=== PATIENT | female | born 1985 | race Caucasian/White ===

== ENCOUNTER → 2020-11-08 08:21 | Outpatient (BNVA) | payer OTHER, SELFPAY | PROVIDERS: PCP Family Medicine; Visit Provider Physician Assistant | DX: Z76.89 Persons encountering health services in other specified circumstances (principal) ==

== ENCOUNTER → 2020-11-09 10:47 | Outpatient (BNVA) | payer OTHER, SELFPAY | PROVIDERS: PCP Family Medicine; Visit Provider Physician Assistant | DX: E66.01 Morbid (severe) obesity due to excess calories (principal); Z68.43 Body mass index [BMI] 50.0-59.9, adult | CPT/HCPCS: 99212 ==

== ENCOUNTER → 2020-11-24 08:25 | Outpatient (BNVA) | payer OTHER, SELFPAY | PROVIDERS: PCP Family Medicine; Visit Provider Dietitian, Registered | DX: Z76.89 Persons encountering health services in other specified circumstances (principal) ==

== ENCOUNTER 2020-12-07 13:42 | Outpatient (REF) | payer OTHER, SELFPAY ==
--- NOTE | 2020-12-07 13:51 | ECG_ITS ---
Test Reason : MORBID OBESITY Blood Pressure : / mmHG Vent. Rate : 079 BPM Atrial Rate : 079 BPM P-R Int : 144 ms QRS Dur : 094 ms QT Int : 398 ms P-R-T Axes : 054 051 021 degrees QTc Int : 456 ms Normal sinus rhythm with sinus arrhythmia Normal ECG No previous ECGs available Referred By: Tiffanie Reddy Electronically Signed By:Rasta Blanco
--- NOTE | 2020-12-07 14:40 | XR_ITS ---
EXAMINATION: XR CHEST CLINICAL INFORMATION: Morbid obesity due to excess calories. COMPARISON: None TECHNIQUE: 2 views of the chest were obtained. FINDINGS: The lungs are well expanded. There is no focal consolidation, edema, or effusion. No pneumothorax. The cardiomediastinal silhouette is within normal limits. No acute osseous abnormality. XR/XR chest 2V IMPRESSION: Clear lungs.
[2020-12-07 15:33] LABS: MANUAL DIFF FLAG NO
[2020-12-07 15:34] LABS: Basophils Absolute Auto 0.1 X10*3/uL (0.0-0.2); Basophils Percent Auto 0.7 % (0-2); Eosinophils Absolute Auto 0.2 X10*3/uL (0.0-0.4); Eosinophils Percent Auto 2.5 % (0-4); Hematocrit 41.9 % (37-47); Hemoglobin 13.3 g/dl (12.0-16.0); Imm Gran Abs Auto 0.02 X10*3/uL (0.00-0.03); Imm Gran Pct Auto 0.3 % (0.0-0.4); Lymphocytes Absolute Auto 1.5 X10*3/uL (1.2-4.9); Lymphocytes Percent Auto 20.3 % (20-40); Mean Corpuscular HGB Conc 31.7 g/dl (31.0-35.0); Mean Corpuscular Hemoglobin 28.6 pg (27.0-33.0); Mean Corpuscular Volume 90.1 fL (80-98); Monocytes Absolute Auto 0.5 X10*3/uL (0.1-1.2); Monocytes Percent Auto 6.8 % (2-11); Neutrophils Absolute Auto 5.2 X10*3/uL (2.0-8.3); Neutrophils Percent Auto 69.4 % (45-73); Platelet Count 335 X10*3/uL (160-400); Red Blood Count 4.65 X10*6/uL (4.20-5.50); Red Cell Distribution Width 13.4 % (11.0-16.0); White Blood Count 7.5 X10*3/uL (4.8-10.8)
[2020-12-07 15:46] LABS: Estimated Average Glucose 94 mg/dL; Hemoglobin A1c % 4.9 %
[2020-12-07 16:04] LABS: Alanine Aminotransferase 17 U/L (0-31); Albumin Level 4.1 g/dL (3.5-5.0); Alkaline Phosphatase 93 U/L (39-117); Anion Gap 12 (12-20); Aspartate Amino Transferase 14 U/L (5-31); Bilirubin Total 0.5 mg/dL (0.0-1.0); Blood Urea Nitrogen 12 mg/dL (9-16); Carbon Dioxide 26 mmol/L (22-29); Chloride 109 mmol/L (96-108); Cholesterol 129 mg/dL; Estimated Glomerular Filt Rate > 60; Glucose Fasting 77 mg/dL (60-99); HDL Cholesterol 39 mg/dL; Iron 29 mcg/dL (30-160); LDL Cholesterol Calculated 72 mg/dl; Percent Iron Saturation 9 % (15-50); Potassium 4.4 mmol/l (3.3-5.1); Sodium 143 mmol/L (135-145); Total Iron Binding Capacity 313 mcg/dL (228-428); Total Protein 7.1 g/dL (6.5-8.0); Triglycerides 91 mg/dL; Unsaturated Iron Binding 284 ug/dL
[2020-12-07 16:27] LABS: Ferritin 20 ng/mL (10-122); TSH reflex Free T4 5.62 mIU/mL (0.32-4.0); Vitamin D 25-OH Total 20.5 ng/mL (>30)
[2020-12-07 16:34] LABS: Vitamin B12 340 pg/mL (200-900)
[2020-12-07 17:04] LABS: Free T4 (Free Thyroxine) 0.82 ng/dL (0.71-1.85)
[2020-12-08 10:52] LABS: Insulin Level Total 10.3 uIU/mL
[2020-12-08 15:42] LABS: Calcium (PTHI) 9.2 mg/dL (8.6-10.2); PTHI 39 pg/mL (14-64)
[2020-12-10 01:53] LABS: Zinc 77 mcg/dL (60-130)
[2020-12-11 13:23] LABS: Vitamin B1 7 nmol/L (8-30)
[2020-12-13 19:02] LABS: Vitamin A 44 mcg/dL (38-98)
== END 2020-12-07 13:43 | disposition home or self-care (01) ==
LOC: HO.LAB 13:42
PROVIDERS: PCP Internal Medicine; Visit Provider Physician Assistant
DX: Z00.00 Encounter for general adult medical examination without abnormal findings (principal); E66.01 Morbid (severe) obesity due to excess calories; R06.02 Shortness of breath; E11.9 Type 2 diabetes mellitus without complications; E03.9 Hypothyroidism, unspecified; Z68.43 Body mass index [BMI] 50.0-59.9, adult
CPT/HCPCS: 36415; 71046; 80053; 80061; 82306; 82607; 82728; 82746; 83036; 83525; 83540; 83970; 84425; 84439; 84443; 84590; 84630; 85025; 86140; 93005

== ENCOUNTER → 2020-12-21 08:25 | Outpatient (BNVA) | payer OTHER, SELFPAY | PROVIDERS: PCP Internal Medicine; Visit Provider Dietitian, Registered ==

== ENCOUNTER 2020-12-22 15:30 | Outpatient (REF) | payer OTHER, SELFPAY ==
[2020-12-23 13:51] LABS: H Pylori Breath Test NOT DETECTED (NOT DETECTED)
== END 2020-12-22 15:31 | disposition home or self-care (01) ==
LOC: HO.LNP 15:30
PROVIDERS: PCP Nurse Practitioner Family; Visit Provider Physician Assistant
DX: Z11.0 Encounter for screening for intestinal infectious diseases (principal)
CPT/HCPCS: 83013; 99211

== ENCOUNTER → 2021-01-18 07:57 | Outpatient (BNVA) | payer OTHER, SELFPAY | PROVIDERS: PCP Internal Medicine; Visit Provider Surgery ==

== ENCOUNTER 2021-02-02 13:30 | Outpatient (REF) | payer OTHER, SELFPAY ==
--- NOTE | ~2021-02-02 | XR_ITS ---
EXAMINATION: XR, HAND, BILATERAL CLINICAL INFORMATION: Pain. COMPARISON: None TECHNIQUE: Three views of each hand. FINDINGS: Left: There is periarticular osteopenia. There is extensive cystic change at the wrist involving the LONG TERM joints, carpal bones and radiocarpal and distal radial ulnar joints. There is slight collapse of the proximal carpal row. The IP joints and MCP joints are normal-appearing. No fracture, dislocation or bone lesion is seen. Soft tissues are normal. Right: There is periarticular osteopenia. There is collapse of the proximal carpal row. There is question of ankylosis of the carpal bones as discrete joint spaces in the wrist is no longer seen. There is a cystic change in the carpal bones, distal radius and distal ulna. There is joint space narrowing at the radiocarpal joint and distal radioulnar joints. There is joint space narrowing at the LONG TERM joints. The MCP and IP joints are normal. Soft tissues are normal. XR/XR hand RT min 3V IMPRESSION: Severe arthritis at the wrists, right greater than left. Inflammatory arthritis should be considered.
--- NOTE | ~2021-02-02 | XR_ITS ---
EXAMINATION: XR, HAND, BILATERAL CLINICAL INFORMATION: Pain. COMPARISON: None TECHNIQUE: Three views of each hand. FINDINGS: Left: There is periarticular osteopenia. There is extensive cystic change at the wrist involving the ALF joints, carpal bones and radiocarpal and distal radial ulnar joints. There is slight collapse of the proximal carpal row. The IP joints and MCP joints are normal-appearing. No fracture, dislocation or bone lesion is seen. Soft tissues are normal. Right: There is periarticular osteopenia. There is collapse of the proximal carpal row. There is question of ankylosis of the carpal bones as discrete joint spaces in the wrist is no longer seen. There is a cystic change in the carpal bones, distal radius and distal ulna. There is joint space narrowing at the radiocarpal joint and distal radioulnar joints. There is joint space narrowing at the ALF joints. The MCP and IP joints are normal. Soft tissues are normal. 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 Inflammatory arthritis should be considered.
--- NOTE | ~2021-02-02 | XR_ITS ---
EXAMINATION: BILATERAL KNEE X-RAY CLINICAL INFORMATION: Pain COMPARISON: None TECHNIQUE: 4 views each knee FINDINGS: Bone alignment is normal. No fracture or dislocation is seen. There may be slight lateral tilt of the patella on the sunrise view. Joint spaces are otherwise normal. There are bilateral joint effusions, left greater than right. XR/XR knee RT 3V IMPRESSION: Bilateral large joint effusions, left greater than right. Slight lateral tilt of the patella on the sunrise views.
--- NOTE | ~2021-02-02 | XR_ITS ---
EXAMINATION: BILATERAL KNEE X-RAY CLINICAL INFORMATION: Pain COMPARISON: None TECHNIQUE: 4 views each knee FINDINGS: Bone alignment is normal. No fracture or dislocation is seen. There may be slight lateral tilt of the patella on the sunrise view. Joint spaces are otherwise normal. There are bilateral joint effusions, left greater than right. XR/XR knee LT 3V IMPRESSION: Bilateral large joint effusions, left greater than right. Slight lateral tilt of the patella on the sunrise views.
[2021-02-02 14:56] LABS: MANUAL DIFF FLAG NO
[2021-02-02 14:59] LABS: Basophils Percent Auto 0.3 % (0-2); Eosinophils Absolute Auto 0.2 X10*3/uL (0.0-0.4); Eosinophils Percent Auto 1.9 % (0-4); Hematocrit 39.6 % (37-47); Hemoglobin 12.9 g/dl (12.0-16.0); Imm Gran Abs Auto 0.03 X10*3/uL (0.00-0.03); Imm Gran Pct Auto 0.3 % (0.0-0.4); Lymphocytes Absolute Auto 1.8 X10*3/uL (1.2-4.9); Lymphocytes Percent Auto 19.8 % (20-40); Mean Corpuscular HGB Conc 32.6 g/dl (31.0-35.0); Mean Corpuscular Hemoglobin 28.1 pg (27.0-33.0); Mean Corpuscular Volume 86.3 fL (80-98); Mean Platelet Volume 9.5 fL (9.4-12.3); Monocytes Absolute Auto 0.6 X10*3/uL (0.1-1.2); Neutrophils Absolute Auto 6.3 X10*3/uL (2.0-8.3); Neutrophils Percent Auto 70.7 % (45-73); Platelet Count 396 X10*3/uL (160-400); Red Blood Count 4.59 X10*6/uL (4.20-5.50); Red Cell Distribution Width 13.4 % (11.0-16.0); White Blood Count 8.9 X10*3/uL (4.8-10.8)
[2021-02-02 15:27] LABS: Alanine Aminotransferase 26 U/L (0-31); Albumin Level 4.1 g/dL (3.5-5.0); Alkaline Phosphatase 93 U/L (39-117); Anion Gap 17 (12-20); Aspartate Amino Transferase 17 U/L (5-31); Bilirubin Total 0.3 mg/dL (0.0-1.0); Blood Urea Nitrogen 17 mg/dL (9-16); C Reactive Protein 5.77 mg/dL (< or = 0.50); Calcium 9.4 mg/dL (8.4-10.2); Carbon Dioxide 20 mmol/L (22-29); Chloride 106 mmol/L (96-108); Cholesterol 133 mg/dL; Estimated Glomerular Filt Rate > 60; Glucose Fasting 81 mg/dL (60-99); HDL Cholesterol 39 mg/dL; LDL Cholesterol Calculated 78 mg/dl; Potassium 4.4 mmol/L (3.3-5.1); Rheumatoid Factor 73.5 IU/mL (<15.0); Sodium 139 mmol/L (135-145); Total Protein 7.7 g/dL (6.5-8.0); Triglycerides 80 mg/dL
[2021-02-02 15:42] LABS: Erythrocyte Sedimentation Rate 72 MM/HR (0-20)
[2021-02-02 15:48] LABS: Thyroid Stimulating Hormone 5.42 uIU/mL (0.32-4.0)
[2021-02-03 08:31] LABS: Lyme Abs Screen <0.90 index
[2021-02-03 13:16] LABS: Antibody to SS-A Antigen <1.0 NEG AI (<1.0 NEG); Antibody to SS-B Antigen <1.0 NEG AI (<1.0 NEG)
[2021-02-04 23:57] LABS: Cyclic Citrullinated Peptide >250 UNITS
[2021-02-05 08:20] LABS: Hepatitis B Surface Antigen Negative (Negative)
[2021-02-05 08:24] LABS: HBS Num1 1.81 mIU/mL (0-7.99); HBc Num1 0.14 S/CO (0.00-0.79); Hepatitis B Core Antibody Nonreactive (Nonreactive); ~HepC Num1 0.14 S/CO (0.00-0.79); ~Hepatitis B Surface Antibody NONREACTIVE (Nonreactive); ~Hepatitis C Antibody Nonreactive (Nonreactive)
[2021-02-05 14:56] LABS: TS Negative Control Passed; TS Panel A 0; TS Panel B 0; TS Positive Control Passed; TSpotTB Negative (SeeBelow)
[2021-02-05 15:47] LABS: Anti Nuclear Antibody Pattern Nuclear, Centromere; Anti Nuclear Antibody Screen POSITIVE (NEGATIVE)
[2021-02-07 08:09] LABS: Hepatitis A Antibody IgM 0.15 Index (0-0.79); ~Hepatitis A Antibody IgM Nonreactive (Nonreactive)
== END 2021-02-02 13:31 | disposition home or self-care (01) ==
LOC: HO.LAB 13:30
PROVIDERS: PCP Internal Medicine; Visit Provider Student in an Organized Health Care Education/Training Program
DX: M25.50 Pain in unspecified joint (principal); E11.9 Type 2 diabetes mellitus without complications; E03.9 Hypothyroidism, unspecified; E66.01 Morbid (severe) obesity due to excess calories; F32.9 Major depressive disorder, single episode, unspecified; M85.88 Other specified disorders of bone density and structure, other site; Z87.891 Personal history of nicotine dependence; Z88.8 Allergy status to other drugs, medicaments and biological substances; Z79.899 Other long term (current) drug therapy
CPT/HCPCS: 36415; 73130; 73562; 80053; 80061; 84443; 85025; 85652; 86038; 86039; 86140; 86200; 86235; 86431; 86481; 86618; 86704; 86706; 86709; 86803; 87340; 99202

== ENCOUNTER → 2021-02-08 15:15 | Outpatient (BNVA) | payer OTHER, SELFPAY | PROVIDERS: Visit Provider Surgery | DX: E66.01 Morbid (severe) obesity due to excess calories (principal); Z68.43 Body mass index [BMI] 50.0-59.9, adult; E55.9 Vitamin D deficiency, unspecified | CPT/HCPCS: 99212 ==

== ENCOUNTER → 2021-02-23 09:11 | Outpatient (BNVA) | payer OTHER, SELFPAY | PROVIDERS: Visit Provider Student in an Organized Health Care Education/Training Program | DX: M06.9 Rheumatoid arthritis, unspecified (principal) ==

== ENCOUNTER 2021-04-10 15:07 | Outpatient (REF) | payer OTHER, SELFPAY ==
[2021-04-10 16:20] LABS: MANUAL DIFF FLAG NO
[2021-04-10 16:25] LABS: Basophils Percent Auto 0.6 % (0-2); Eosinophils Absolute Auto 0.2 X10*3/uL (0.0-0.4); Eosinophils Percent Auto 3.2 % (0-4); Hematocrit 40.7 % (37-47); Hemoglobin 12.7 g/dl (12.0-16.0); Imm Gran Abs Auto 0.02 X10*3/uL (0.00-0.03); Imm Gran Pct Auto 0.3 % (0.0-0.4); Lymphocytes Absolute Auto 1.6 X10*3/uL (1.2-4.9); Mean Corpuscular HGB Conc 31.2 g/dl (31.0-35.0); Mean Corpuscular Hemoglobin 27.3 pg (27.0-33.0); Mean Corpuscular Volume 87.5 fL (80-98); Mean Platelet Volume 8.9 fL (9.4-12.3); Monocytes Absolute Auto 0.5 X10*3/uL (0.1-1.2); Monocytes Percent Auto 7.2 % (2-11); Neutrophils Absolute Auto 4.4 X10*3/uL (2.0-8.3); Neutrophils Percent Auto 64.7 % (45-73); Platelet Count 373 X10*3/uL (160-400); Red Blood Count 4.65 X10*6/uL (4.20-5.50); Red Cell Distribution Width 15.5 % (11.0-16.0); White Blood Count 6.8 X10*3/uL (4.8-10.8)
[2021-04-10 16:51] LABS: Alanine Aminotransferase 18 U/L (0-31); Albumin Level 4.1 g/dL (3.5-5.0); Alkaline Phosphatase 108 U/L (39-117); Anion Gap 14 (12-20); Aspartate Amino Transferase 15 U/L (5-31); Bilirubin Total 0.4 mg/dL (0.0-1.0); Blood Urea Nitrogen 13 mg/dL (9-16); C Reactive Protein 5.28 mg/dL (< or = 0.50); Calcium 9.5 mg/dL (8.4-10.2); Carbon Dioxide 25 mmol/L (22-29); Chloride 103 mmol/L (96-108); Estimated Glomerular Filt Rate > 60; Glucose Random 102 mg/dL (60-115); Potassium 4.1 mmol/L (3.3-5.1); Sodium 138 mmol/L (135-145); Total Protein 7.4 g/dL (6.5-8.0)
[2021-04-10 17:16] LABS: Vitamin D 25-OH Total 32.5 ng/mL (>30)
[2021-04-10 17:22] LABS: Erythrocyte Sedimentation Rate 69 MM/HR (0-20)
[2021-04-10 17:58] LABS: Glucose Urine UA NEG (NEG); Leukocyte Esterase Urine 1+ (NEG); Nitrite Urine NEG (NEG); Specific Gravity - Urine 1.015 (1.005-1.025); Urine Blood NEG (NEG); Urine Ketones NEG (NEG); Urine Protein NEG (NEG-TRACE)
[2021-04-10 18:02] LABS: Appearance Urine CLEAR; Color Urine YELLOW
[2021-04-10 18:11] LABS: Bacteria Urine 1+ /LPF; RBC Urine 0 /HPF (0); Squamous Epithelial Cell Urine 2+ /LPF; WBC Urine 0-2 /HPF (0-4)
[2021-04-11 09:37] LABS: Thyroglobulin Antibodies 5 IU/mL (< or = 1); Thyroid Peroxidase Antibodies 247 IU/mL (<9)
[2021-04-11 11:37] LABS: Anti DNA DS Antibody 1 IU/mL; SM/Ribonucleoprotein Ab <1.0 NEG AI (<1.0 NEG); Scleroderma 70 Antibody <1.0 NEG AI (<1.0 NEG); Smith Protein <1.0 NEG AI (<1.0 NEG)
[2021-04-11 14:52] LABS: Complement C3 77 mg/dL (83-193)
== END 2021-04-10 15:08 | disposition home or self-care (01) ==
LOC: HO.LAB 15:07
PROVIDERS: Surgery; Visit Provider Student in an Organized Health Care Education/Training Program
DX: Z01.818 Encounter for other preprocedural examination (principal); R76.8 Other specified abnormal immunological findings in serum; M06.9 Rheumatoid arthritis, unspecified; E55.9 Vitamin D deficiency, unspecified
CPT/HCPCS: 36415; 80053; 81001; 82306; 85025; 85652; 86140; 86160; 86225; 86235; 86376; 86800

== ENCOUNTER → 2021-04-12 16:20 | Outpatient (BNVA) | payer OTHER, SELFPAY | PROVIDERS: PCP Internal Medicine; Visit Provider Student in an Organized Health Care Education/Training Program | DX: M25.50 Pain in unspecified joint (principal); R76.8 Other specified abnormal immunological findings in serum; E66.01 Morbid (severe) obesity due to excess calories; F41.8 Other specified anxiety disorders; Z68.43 Body mass index [BMI] 50.0-59.9, adult; Z88.8 Allergy status to other drugs, medicaments and biological substances; Z79.899 Other long term (current) drug therapy | CPT/HCPCS: 99212 ==

== ENCOUNTER 2021-05-30 12:32 | Outpatient (REF) | payer OTHER, SELFPAY ==
[2021-05-30 13:09] LABS: MANUAL DIFF FLAG NO
[2021-05-30 13:12] LABS: Basophils Percent Auto 0.4 % (0-2); Eosinophils Absolute Auto 0.2 X10*3/uL (0.0-0.4); Hematocrit 39.7 % (37-47); Hemoglobin 12.7 g/dl (12.0-16.0); Imm Gran Abs Auto 0.02 X10*3/uL (0.00-0.03); Imm Gran Pct Auto 0.2 % (0.0-0.4); Lymphocytes Absolute Auto 1.7 X10*3/uL (1.2-4.9); Lymphocytes Percent Auto 21.1 % (20-40); Mean Corpuscular Hemoglobin 27.5 pg (27.0-33.0); Mean Corpuscular Volume 86.1 fL (80-98); Mean Platelet Volume 9.1 fL (9.4-12.3); Monocytes Absolute Auto 0.7 X10*3/uL (0.1-1.2); Monocytes Percent Auto 7.9 % (2-11); Neutrophils Absolute Auto 5.6 X10*3/uL (2.0-8.3); Neutrophils Percent Auto 68.4 % (45-73); Platelet Count 390 X10*3/uL (160-400); Red Blood Count 4.61 X10*6/uL (4.20-5.50); Red Cell Distribution Width 15.6 % (11.0-16.0); White Blood Count 8.2 X10*3/uL (4.8-10.8)
[2021-05-30 13:47] LABS: Glucose Urine UA NEG (NEG); Leukocyte Esterase Urine 3+ (NEG); Nitrite Urine NEG (NEG); Specific Gravity - Urine 1.025 (1.005-1.025); Urine Blood NEG (NEG); Urine Ketones 5 MG/DL (NEG); Urine Protein NEG (NEG-TRACE)
[2021-05-30 13:51] LABS: Alanine Aminotransferase 16 U/L (0-31); Alkaline Phosphatase 88 U/L (39-117); Anion Gap 12 (12-20); Aspartate Amino Transferase 13 U/L (5-31); Bilirubin Total 0.4 mg/dL (0.0-1.0); Blood Urea Nitrogen 16 mg/dL (9-16); C Reactive Protein 3.89 mg/dL (< or = 0.50); Calcium 9.4 mg/dL (8.4-10.2); Carbon Dioxide 21 mmol/L (22-29); Chloride 108 mmol/L (96-108); Estimated Glomerular Filt Rate > 60; Glucose Random 85 mg/dL (60-115); Potassium 4.3 mmol/L (3.3-5.1); Sodium 137 mmol/L (135-145); Total Protein 7.4 g/dL (6.5-8.0)
[2021-05-30 13:56] LABS: Erythrocyte Sedimentation Rate 69 MM/HR (0-20)
[2021-05-30 14:03] LABS: Amorphous Sediment Urine 1+ /LPF; Mucus Urine 1+ /LPF; RBC Urine 0 /HPF (0); Squamous Epithelial Cell Urine 2+ /LPF
[2021-05-30 15:24] LABS: Appearance Urine HAZY; Color Urine YELLOW
== END 2021-05-30 12:33 | disposition home or self-care (01) ==
LOC: HO.LAB 12:32
PROVIDERS: PCP Internal Medicine; Visit Provider Student in an Organized Health Care Education/Training Program
DX: M06.9 Rheumatoid arthritis, unspecified (principal)
CPT/HCPCS: 36415; 80053; 81001; 85025; 85652; 86140

== ENCOUNTER → 2021-06-13 11:19 | Outpatient (BNVA) | payer OTHER, SELFPAY | PROVIDERS: PCP Internal Medicine; Visit Provider Student in an Organized Health Care Education/Training Program | DX: M06.9 Rheumatoid arthritis, unspecified (principal) ==

== ENCOUNTER → 2021-07-31 13:37 | Outpatient (BNVA) | payer OTHER, SELFPAY | PROVIDERS: PCP Internal Medicine; Referring Provider Internal Medicine; Visit Provider Surgery | DX: E66.01 Morbid (severe) obesity due to excess calories (principal); Z68.43 Body mass index [BMI] 50.0-59.9, adult | CPT/HCPCS: 99212 ==

== ENCOUNTER 2021-08-08 11:22 | Outpatient (REF) | payer OTHER, SELFPAY ==
[2021-08-08 12:34] LABS: MANUAL DIFF FLAG NO
[2021-08-08 13:33] LABS: Basophils Percent Auto 0.4 % (0-2); Eosinophils Absolute Auto 0.3 X10*3/uL (0.0-0.4); Eosinophils Percent Auto 3.8 % (0-4); Hematocrit 37.7 % (37-47); Hemoglobin 12.1 g/dl (12.0-16.0); Imm Gran Abs Auto 0.02 X10*3/uL (0.00-0.03); Imm Gran Pct Auto 0.3 % (0.0-0.4); Lymphocytes Absolute Auto 1.7 X10*3/uL (1.2-4.9); Lymphocytes Percent Auto 23.2 % (20-40); Mean Corpuscular HGB Conc 32.1 g/dl (31.0-35.0); Mean Corpuscular Hemoglobin 28.7 pg (27.0-33.0); Mean Corpuscular Volume 89.3 fL (80-98); Mean Platelet Volume 9.6 fL (9.4-12.3); Monocytes Absolute Auto 0.6 X10*3/uL (0.1-1.2); Monocytes Percent Auto 8.7 % (2-11); Neutrophils Absolute Auto 4.5 X10*3/uL (2.0-8.3); Neutrophils Percent Auto 63.6 % (45-73); Platelet Count 348 X10*3/uL (160-400); Red Blood Count 4.22 X10*6/uL (4.20-5.50); Red Cell Distribution Width 16.2 % (11.0-16.0); White Blood Count 7.1 X10*3/uL (4.8-10.8)
[2021-08-08 14:03] LABS: Appearance Urine CLEAR; Color Urine YELLOW; Glucose Urine UA NEG (NEG); Leukocyte Esterase Urine TRACE (NEG); Nitrite Urine NEG (NEG); Specific Gravity - Urine <= 1.005 (1.005-1.025); Urine Blood NEG (NEG); Urine Ketones NEG (NEG); Urine Protein NEG (NEG-TRACE)
[2021-08-08 14:07] LABS: Alanine Aminotransferase 17 U/L (0-31); Albumin Level 3.8 g/dL (3.5-5.0); Alkaline Phosphatase 96 U/L (39-117); Anion Gap 13 (12-20); Aspartate Amino Transferase 13 U/L (5-31); Bilirubin Total 0.5 mg/dL (0.0-1.0); Blood Urea Nitrogen 6 mg/dL (9-16); C Reactive Protein 2.73 mg/dL (< or = 0.50); Calcium 9.2 mg/dL (8.4-10.2); Carbon Dioxide 22 mmol/L (22-29); Chloride 109 mmol/L (96-108); Estimated Glomerular Filt Rate > 60; Glucose Random 79 mg/dL (60-115); Potassium 4.3 mmol/L (3.3-5.1); Sodium 140 mmol/L (135-145); Total Protein 6.9 g/dL (6.5-8.0)
[2021-08-08 14:13] LABS: RBC Urine 0-2 /HPF (0); Squamous Epithelial Cell Urine 1+ /LPF
[2021-08-08 14:38] LABS: Erythrocyte Sedimentation Rate 38 MM/HR (0-20)
== END 2021-08-08 11:23 | disposition home or self-care (01) ==
LOC: HO.LAB 11:22
PROVIDERS: Absent Provider Student in an Organized Health Care Education/Training Program; PCP Internal Medicine; Visit Provider Nurse Practitioner Family
DX: M05.9 Rheumatoid arthritis with rheumatoid factor, unspecified (principal)
CPT/HCPCS: 36415; 80053; 81001; 85025; 85652; 86140; 99212

== ENCOUNTER 2021-08-27 | Outpatient (REF) | payer OTHER, SELFPAY ==
--- NOTE | ~2021-08-27 | US_ITS ---
EXAMINATION: US COMPLETE ABDOMEN WITH LIVER ELASTOGRAPHY CLINICAL INFORMATION: Morbid obesity due to excess calories. COMPARISON: None. TECHNIQUE: Real-time imaging of the abdominal viscera. Noninvasive ultrasound liver fibrosis assessment is performed using Vidya ElastPQ point quantification shear wave elastography (pSWE) with a C5-2 MHz transducer. Multiple elastography samples are obtained. FINDINGS: PANCREAS: Visualized portions unremarkable. The tail is partially obscured by bowel gas shadowing. ABDOMINAL AORTA: Visualized portions unremarkable. INFERIOR VENA CAVA: Bobby portions unremarkable. LIVER: Homogeneous echotexture without focal abnormality. The right lobe measures 15.3 cm in length. The left lobe measures 9.6 cm in length. Portal flow is patent and hepatopedal. Shear wave liver elastography median stiffness is 1.65 m/s (reference: normal median stiffness is 1.3 m/s or less). IQR/median stiffness to assess sampling precision is 0.21 (reference: good quality data set is IQR/median stiffness of 0.15 or less). GALLBLADDER: Unremarkable. COMMON BILE DUCT: Normal in caliber measuring 0.3 cm in diameter. RIGHT KIDNEY: 10.3 cm. Unremarkable. LEFT KIDNEY: 11.5 cm. Unremarkable. SPLEEN: 10.7 cm. Unremarkable. FREE FLUID: None. US/US abdomen comp w elastography IMPRESSION: 1. No focal hepatic abnormality. No other significant upper abdominal abnormality. 2. Liver elastography: Compensated advanced chronic liver disease rule out. REFERENCE: Society of Radiologists in Ultrasound Liver Stiffness Thresholds (2020): LIVER STIFFNESS THRESHOLDS: *Liver Stiffness equal or less than 1.3 m/s: High probability of being normal. *Liver Stiffness less than 1.7 m/s: In the absence of other known clinical signs, rules out compensated advanced chronic liver disease. *Liver Stiffness 1.7-2.1 m/s: Suggestive of compensated advanced chronic liver disease but need further test for confirmation. *Liver Stiffness over 2.1 m/s: Rules in compensated advanced chronic liver disease. *Liver Stiffness over 2.4 m/s: Suggestive of clinically significant portal hypertension. QUALITY OF DATA SET: *IQR/Median value equal or less than 0.15 implies a quality data set. *IQR/Median value over 0.15 implies a poor quality data set. SIGNIFICANT CHANGE FROM PRIOR EXAM: Significant change if liver stiffness measurement is 10% or greater from prior exam. OTHER CONSIDERATIONS: The stage of liver fibrosis may be overestimated in the setting of acute hepatitis, liver inflammation, elevated liver function tests, hepatic vascular congestion, obstructive cholestasis, non-fasting state, and infiltrative diseases such as amyloidosis and lymphoma. In some patients with NAFLD, the liver stiffness thresholds for compensated advanced chronic liver disease may be lower. In causes other than viral hepatitis and NAFLD, liver stiffness thresholds are not well established.
--- NOTE | ~2021-08-27 | FL_ITS ---
EXAMINATION: XR GI SERIES CLINICAL INFORMATION: Morbid/severe obesity due to excess calories. COMPARISON: None TECHNIQUE: Routine upper GI air-contrast study was performed. FINDINGS: Following oral administration of thick barium and effervescent granules, there is normal propagation of bolus from the oral cavity through the pharynx, esophagus into stomach without any evidence of obstruction, narrowing or stricture. The course, caliber and peristalsis of the stomach, duodenal bulb and duodenal sweep are normal. The mucosal pattern of the stomach and the duodenum is normal. FLUOROSCOPY TIME: 1.4 minutes DOSE AREA PRODUCT: 29.070 uGy-m2 (microgray-meter squared) FL/FL upper GI series IMPRESSION: Unremarkable upper GI air-contrast study.
== END 2021-08-27 00:01 | disposition home or self-care (01) ==
LOC: HO.US
PROVIDERS: Visit Provider Surgery
DX: Z01.818 Encounter for other preprocedural examination (principal); E66.01 Morbid (severe) obesity due to excess calories; K21.9 Gastro-esophageal reflux disease without esophagitis
CPT/HCPCS: 74240; 76705; 76981

== ENCOUNTER → 2021-09-05 11:02 | Outpatient (BNVA) | payer OTHER, SELFPAY | PROVIDERS: PCP Internal Medicine; Referring Provider Internal Medicine; Visit Provider Surgery | DX: E66.01 Morbid (severe) obesity due to excess calories (principal); Z68.43 Body mass index [BMI] 50.0-59.9, adult | CPT/HCPCS: 99212 ==

== ENCOUNTER 2021-09-25 14:23 | Outpatient (REF) | payer OTHER, SELFPAY ==
[2021-09-25 14:39] LABS: MANUAL DIFF FLAG NO
[2021-09-25 14:47] LABS: Basophils Percent Auto 0.3 % (0-2); Eosinophils Absolute Auto 0.2 X10*3/uL (0.0-0.4); Eosinophils Percent Auto 2.7 % (0-4); Hematocrit 39.6 % (37.0-47.0); Hemoglobin 12.6 g/dl (12.0-16.0); Imm Gran Abs Auto 0.01 X10*3/uL (0.00-0.03); Imm Gran Pct Auto 0.2 % (0.0-0.4); Lymphocytes Absolute Auto 1.6 X10*3/uL (1.2-4.9); Lymphocytes Percent Auto 24.8 % (20-40); Mean Corpuscular HGB Conc 31.8 g/dl (31.0-35.0); Mean Corpuscular Hemoglobin 28.5 pg (27.0-33.0); Mean Corpuscular Volume 89.6 fL (80.0-98.0); Mean Platelet Volume 8.9 fL (9.4-12.3); Monocytes Absolute Auto 0.5 X10*3/uL (0.1-1.2); Monocytes Percent Auto 7.5 % (2-11); Neutrophils Absolute Auto 4.2 x10*3/uL (2.0-8.3); Neutrophils Percent Auto 64.5 % (45-73); Platelet Count 340 X10*3/uL (160-400); Red Blood Count 4.42 X10*6/uL (4.20-5.50); Red Cell Distribution Width 15.5 % (11.0-16.0); White Blood Count 6.6 X10*3/uL (4.8-10.8)
[2021-09-25 15:10] LABS: Alanine Aminotransferase 30 U/L (0-31); Albumin Level 4.1 g/dL (3.5-5.0); Alkaline Phosphatase 94 U/L (39-117); Anion Gap 12 (12-20); Aspartate Amino Transferase 24 U/L (5-31); Bilirubin Total 0.3 mg/dL (0.0-1.0); Blood Urea Nitrogen 15 mg/dL (9-16); C Reactive Protein 2.95 mg/dL (< or = 0.50); Calcium 9.5 mg/dL (8.4-10.2); Carbon Dioxide 23 mmol/L (22-29); Chloride 107 mmol/L (96-108); Estimated Glomerular Filt Rate > 60; Glucose Random 83 mg/dL (60-115); Potassium 4.4 mmol/L (3.3-5.1); Sodium 138 mmol/L (135-145); Total Protein 7.6 g/dL (6.5-8.0)
[2021-09-25 15:30] LABS: Free T4 (Free Thyroxine) 0.94 ng/dL (0.71-1.85); Thyroid Stimulating Hormone 3.77 uIU/mL (0.32-4.0)
[2021-09-25 15:53] LABS: Erythrocyte Sedimentation Rate 44 MM/HR (0-20)
[2021-09-26 17:31] LABS: Thyroglobulin 21.4 ng/mL; Thyroglobulin Antibodies 5 IU/mL (< or = 1); Thyroid Peroxidase Antibodies 263 IU/mL (<9)
[2021-10-04 07:27] LABS: Thyroglobulin Antibody 4 IU/mL (<=1); Thyroglobulin LC/MS/MS 31.8 ng/mL (Athyrotic: <0)
== END 2021-09-25 14:24 | disposition home or self-care (01) ==
LOC: HO.LAB 14:23
PROVIDERS: Nurse Practitioner Family; PCP Internal Medicine; Visit Provider Surgery
DX: E03.9 Hypothyroidism, unspecified (principal); M06.9 Rheumatoid arthritis, unspecified
CPT/HCPCS: 36415; 80053; 84432; 84439; 84443; 84481; 85025; 85652; 86140; 86376; 86800

== ENCOUNTER → 2021-09-26 07:59 | Outpatient (BNVA) | payer OTHER, SELFPAY | PROVIDERS: PCP Internal Medicine; Visit Provider Surgery ==

== ENCOUNTER → 2021-09-28 13:37 | Outpatient (BNVA) | payer OTHER, SELFPAY | PROVIDERS: PCP Internal Medicine; Referring Provider Internal Medicine; Visit Provider Physician Assistant ==

== ENCOUNTER 2021-10-11 08:34 | Inpatient (IN) | payer OTHER, SELFPAY ==
[2021-10-01 11:21] VITALS: BMI 51.5
[2021-10-02 12:30] LABS: MANUAL DIFF FLAG NO
[2021-10-02 12:51] LABS: Basophils Percent Auto 0.6 % (0-2); Eosinophils Absolute Auto 0.2 X10*3/uL (0.0-0.4); Eosinophils Percent Auto 2.1 % (0-4); Hematocrit 41.9 % (37.0-47.0); Hemoglobin 13.2 g/dl (12.0-16.0); Imm Gran Abs Auto 0.02 X10*3/uL (0.00-0.03); Imm Gran Pct Auto 0.3 % (0.0-0.4); Lymphocytes Absolute Auto 1.5 X10*3/uL (1.2-4.9); Lymphocytes Percent Auto 20.9 % (20-40); Mean Corpuscular HGB Conc 31.5 g/dl (31.0-35.0); Mean Corpuscular Hemoglobin 28.4 pg (27.0-33.0); Mean Corpuscular Volume 90.1 fL (80.0-98.0); Mean Platelet Volume 9.1 fL (9.4-12.3); Monocytes Absolute Auto 0.6 X10*3/uL (0.1-1.2); Monocytes Percent Auto 8.4 % (2-11); Neutrophils Absolute Auto 4.8 x10*3/uL (2.0-8.3); Neutrophils Percent Auto 67.7 % (45-73); Platelet Count 367 X10*3/uL (160-400); Red Blood Count 4.65 X10*6/uL (4.20-5.50); Red Cell Distribution Width 15.8 % (11.0-16.0)
[2021-10-02 12:59] LABS: INTERNATIONAL NORM RATIO 1.2 (0.9-1.1); Prothrombin Time 13.6 SEC (9.9-13.0)
[2021-10-02 13:02] LABS: Partial Thromboplastin Time 37.3 SEC (24.1-38.0)
[2021-10-02 13:10] LABS: Alanine Aminotransferase 19 U/L (0-31); Albumin Level 4.2 g/dL (3.5-5.0); Alkaline Phosphatase 94 U/L (39-117); Anion Gap 12 (12-20); Aspartate Amino Transferase 15 U/L (5-31); Bilirubin Total 0.4 mg/dL (0.0-1.0); Blood Urea Nitrogen 13 mg/dL (9-16); Calcium 9.7 mg/dL (8.4-10.2); Carbon Dioxide 25 mmol/L (22-29); Chloride 107 mmol/L (96-108); Cholesterol 129 mg/dL; Estimated Glomerular Filt Rate > 60; Glucose Random 83 mg/dL (60-115); HDL Cholesterol 45 mg/dL; LDL Cholesterol Calculated 67 mg/dl; Potassium 4.6 mmol/L (3.3-5.1); Sodium 139 mmol/L (135-145); Total Protein 7.7 g/dL (6.5-8.0); Triglycerides 87 mg/dL
[2021-10-02 13:34] LABS: Insulin 9 uU/mL (2-29); TSH reflex Free T4 3.15 uIU/mL (0.32-4.0)
[2021-10-02 13:39] LABS: Estimated Average Glucose 80 mg/dL; Hemoglobin A1c % 4.4 %
--- NOTE | 2021-10-06 10:24 | MHC.SHP ---
Pre-Procedural Eval Section A Date of Service: 10/06/21 The patient is an INPATIENT: Yes The History & Physical has been completed within 30 days and I have reviewed it.: Yes Section B Chief Complaint: Morbid Severe Obesity Relevant Family History (Specify if Yes): No Relevant Social History: None Present Medications: None Medical History: No relevant PMH History of Previous Operations: No relevant previous surgery Allergies: Allergies Allergy/AdvReac Type Severity Reaction Status Date / Time prednisone Allergy Severe Hives Verified 10/01/21 10:41 Review of Systems Sugical H&P ROS: Negative: Constitution, Cardiovascular, Respiratory, Neurological, Psychiatric, Hem-Onc, Allergic/Immunologic, Gastrointestinal, Genitourinary, Musculoskeletal, Integumentary, Endocrine and Eyes/Ears/Nose/Throat Exam Surgical H&P Exam: Normal: HEENT, Normal: Heart, Normal: Lungs, Normal: Extremities, Normal: Abdomen, Normal: Skin and Normal: Neurological Plan Diagnosis/Plan: Unchanged I have reviewed the history and physical and performed a pertinent physical examination on my patient. No changes have occurred unless specified.
--- NOTE | 2021-10-10 09:13 | P.CONAN_ITS ---
Documented by User: Armida Swartz NP 10/10/21 09:17 HPI - Anesthesia Eval Consult details Narrative: 35yo F for Gastrectomy Sleeve, EGD, Possible Diaphragmatic Hernia, Possible Ventral Hernia, Possible open RA with methotrexate weekly PMFSH Active Problems Active Problems: All Active Problems (Updated 10/01/21 @ 10:43 by Taty May RN) Physical exam (Acute) Rheumatoid arthritis (Acute) Joint pain (Acute) Vitamin D deficiency (Acute) DIVYA positive (Acute) Pre-op evaluation (Acute) Cough (Acute) Hypothyroidism (Acute) Morbid obesity (Acute) BMI 50.0-59.9, adult (Acute) Morbid obesity (Acute) Past Medical History Medical History Anxiety BMI 50.0-59.9, adult Depression Hypothyroidism Morbid obesity Rheumatoid arthritis Family History Family History Father No problems noted. Mother No problems noted. Sister No problems noted. Surgical History Surgical History History of root canal procedure S/P tonsillectomy Social History Social History Housing: Apartment Are you a primary care process manager to a significant other at home: No Do you presently have visiting nurse or other home services: No Alcohol intake: never Patient Tobacco Use Status: Former Tobacco user Quit Date: 2 yrs ago- Now rare 1 cig infrequently Tobacco use type: Cigarette Cigarette Packs Per Day: 0 Cigarettes Per Day: 0 Years Smoked: 10 Smoked in Last 30 Days: No e-Cigarette/Vaping Use: Never Used Patient Interested in Nicotine Replacement: No Second Hand Smoke Exposure: No Use of substances other than those prescribed or required for medical reasons: No Substance Use Type: Marijuana Substance Use Type Other:: Denies Have you been hit, kicked, punched, or otherwise hurt by someone within the past year? If so, by whom?: No Are you DNR?: No Advance Directives: No Advance Directives Information Provided: Yes (Mailed w/ Pre-op Instructions) Advance Directives on File: No Recently lost weight without trying: No How much weight loss: 24-33 pounds Eating poorly because of decreased appetite: No Nutrition screen score: 3 Nutrition Risks: No Nutritional Risk Patient : No FDLMP: 09/21/21 : No Poor oral hygiene: No (1 capped tooth) service: No Current occupational status: unemployed Meds Allergies Allergy/AdvReac Type Severity Reaction Status Date / Time prednisone Allergy Severe Hives Verified 10/01/21 10:41 Home Medications Medication Instructions Recorded Confirmed Last Taken Type cholecalciferol (vitamin D3) 25 25 mcg PO DAILY 07/31/21 10/01/21 09/26/21 History mcg (1,000 unit) capsule Exam Exam Date and Time: October 10, 2021 0913 Height,Weight and Vital Signs: Height 5 ft 4 in Weight 136.078 kg Pertinent Lab Results Pertinent Lab Results: Laboratory Tests 10/02/21 10/02/21 10/02/21 12:30 12:30 12:30 WBC 7.0 RBC 4.65 Hgb 13.2 Hct 41.9 MCV 90.1 MCH 28.4 MCHC 31.5 RDW 15.8 Plt Count 367 MPV 9.1 L Immature Gran % (Auto) 0.3 Neut % (Auto) 67.7 Lymph % (Auto) 20.9 Dewitt % (Auto) 8.4 Eos % (Auto) 2.1 Baso % (Auto) 0.6 Lymph # (Auto) 1.5 Dewitt # (Auto) 0.6 Eos # (Auto) 0.2 Baso # (Auto) 0.0 Abs Immat Gran (auto) 0.02 Absolute Neuts (auto) 4.8 Absolute Nucleated RBC 0.000 Nucleated RBC % (auto) 0.0 PT 13.6 H INR 1.2 H APTT 37.3 Sodium 139 Potassium 4.6 Chloride 107 Carbon Dioxide 25 Anion Gap 12 BUN 13 Creatinine 0.76 Estim Creat Clear Calc 145.0 Estimated GFR > 60 Random Glucose 83 Estimat Average Glucose Hemoglobin A1c % Insulin Level 9 Calcium 9.7 Total Bilirubin 0.4 AST 15 ALT 19 Alkaline Phosphatase 94 C-Reactive Protein 2.50 H Total Protein 7.7 Albumin 4.2 Triglycerides 87 Cholesterol 129 LDL Cholesterol, Calc 67 HDL Cholesterol 45 TSH 3.15 Blood Type Antibody Screen 10/02/21 10/02/21 12:30 12:30 WBC RBC Hgb Hct MCV MCH MCHC RDW Plt Count MPV Immature Gran % (Auto) Neut % (Auto) Lymph % (Auto) Dewitt % (Auto) Eos % (Auto) Baso % (Auto) Lymph # (Auto) Dewitt # (Auto) Eos # (Auto) Baso # (Auto) Abs Immat Gran (auto) Absolute Neuts (auto) Absolute Nucleated RBC Nucleated RBC % (auto) PT INR APTT Sodium Potassium Chloride Carbon Dioxide Anion Gap BUN Creatinine Estim Creat Clear Calc Estimated GFR Random Glucose Estimat Average Glucose 80 Hemoglobin A1c % 4.4 Insulin Level Calcium Total Bilirubin AST ALT Alkaline Phosphatase C-Reactive Protein Total Protein Albumin Triglycerides Cholesterol LDL Cholesterol, Calc HDL Cholesterol TSH Blood Type B Positive Antibody Screen NEGATIVE Narrative Narrative: EKG 11/2020 Vent. Rate : 079 BPM ? ? Atrial Rate : 079 BPM ?? P-R Int : 144 ms? QRS Dur : 094 ms ? ? QT Int : 398 ms ? ? ? P-R-T Axes : 054 051 021 degrees ?? QTc Int : 456 ms ? Normal sinus rhythm with sinus arrhythmia Normal ECG No previous ECGs available ? Assessment and Plan Assessment Anesthesia Assessment: Chart Reviewed Documented by User: Lily Mejia MD 10/11/21 10:06 [facility] Past Medical History Medical History Anxiety BMI 50.0-59.9, adult Depression Hypothyroidism Morbid obesity Rheumatoid arthritis Family History Family History Father No problems noted. Mother No problems noted. Sister No problems noted. Family history of problems with anesthesia: No Surgical History Surgical History History of root canal procedure S/P tonsillectomy History of Problems with Anesthesia: No Social History Social History Housing: Apartment Are you a primary care process manager to a significant other at home: No Do you presently have visiting nurse or other home services: No Alcohol intake: never Patient Tobacco Use Status: Former Tobacco user Quit Date: 2 yrs ago- Now rare 1 cig infrequently Tobacco use type: Cigarette Cigarette Packs Per Day: 0 Cigarettes Per Day: 0 Years Smoked: 10 Smoked in Last 30 Days: No e-Cigarette/Vaping Use: Never Used Patient Interested in Nicotine Replacement: No Second Hand Smoke Exposure: No Use of substances other than those prescribed or required for medical reasons: No Substance Use Type: Marijuana Substance Use Type Other:: Denies Have you been hit, kicked, punched, or otherwise hurt by someone within the past year? If so, by whom?: No Are you DNR?: No Advance Directives: No Advance Directives Information Provided: Yes (Mailed w/ Pre-op Instructions) Advance Directives on File: No Recently lost weight without trying: No How much weight loss: 24-33 pounds Eating poorly because of decreased appetite: No Nutrition screen score: 3 Nutrition Risks: No Nutritional Risk Patient : No FDLMP: 09/21/21 : No Poor oral hygiene: No (1 capped tooth) service: No Current occupational status: unemployed Meds Allergies Allergy/AdvReac Type Severity Reaction Status Date / Time prednisone Allergy Severe Hives Verified 10/01/21 10:41 Home Medications Medication Instructions Recorded Confirmed Last Taken Type cholecalciferol (vitamin D3) 25 25 mcg PO DAILY 07/31/21 10/01/21 09/26/21 History mcg (1,000 unit) capsule Exam Height,Weight and Vital Signs: Height 5 ft 4 in Weight 136.078 kg Vital Signs Temp Pulse Resp BP Pulse Ox 10/11/21 09:43 97.8 F 98 18 131/86 96 Pertinent Lab Results Pertinent Lab Results: Laboratory Tests 10/02/21 10/02/21 10/02/21 12:30 12:30 12:30 WBC 7.0 RBC 4.65 Hgb 13.2 Hct 41.9 MCV 90.1 MCH 28.4 MCHC 31.5 RDW 15.8 Plt Count 367 MPV 9.1 L Immature Gran % (Auto) 0.3 Neut % (Auto) 67.7 Lymph % (Auto) 20.9 Dewitt % (Auto) 8.4 Eos % (Auto) 2.1 Baso % (Auto) 0.6 Lymph # (Auto) 1.5 Dewitt # (Auto) 0.6 Eos # (Auto) 0.2 Baso # (Auto) 0.0 Abs Immat Gran (auto) 0.02 Absolute Neuts (auto) 4.8 Absolute Nucleated RBC 0.000 Nucleated RBC % (auto) 0.0 PT 13.6 H INR 1.2 H APTT 37.3 Sodium 139 Potassium 4.6 Chloride 107 Carbon Dioxide 25 Anion Gap 12 BUN 13 Creatinine 0.76 Estim Creat Clear Calc 145.0 Estimated GFR > 60 Random Glucose 83 Estimat Average Glucose Hemoglobin A1c % Insulin Level 9 Calcium 9.7 Total Bilirubin 0.4 AST 15 ALT 19 Alkaline Phosphatase 94 C-Reactive Protein 2.50 H Total Protein 7.7 Albumin 4.2 Triglycerides 87 Cholesterol 129 LDL Cholesterol, Calc 67 HDL Cholesterol 45 TSH 3.15 Blood Type Antibody Screen 10/02/21 10/02/21 12:30 12:30 WBC RBC Hgb Hct MCV MCH MCHC RDW Plt Count MPV Immature Gran % (Auto) Neut % (Auto) Lymph % (Auto) Dewitt % (Auto) Eos % (Auto) Baso % (Auto) Lymph # (Auto) Dewitt # (Auto) Eos # (Auto) Baso # (Auto) Abs Immat Gran (auto) Absolute Neuts (auto) Absolute Nucleated RBC Nucleated RBC % (auto) PT INR APTT Sodium Potassium Chloride Carbon Dioxide Anion Gap BUN Creatinine Estim Creat Clear Calc Estimated GFR Random Glucose Estimat Average Glucose 80 Hemoglobin A1c % 4.4 Insulin Level Calcium Total Bilirubin AST ALT Alkaline Phosphatase C-Reactive Protein Total Protein Albumin Triglycerides Cholesterol LDL Cholesterol, Calc HDL Cholesterol TSH Blood Type B Positive Antibody Screen NEGATIVE Laboratory Results - last 24 hr 10/11/21 10/11/21 08:41 08:47 Urine Test NEGATIVE COVID-19 (JESUS MANUEL) Negative COVID-19 Clin Com See Note Airway Mallampati Class: II TM Dist: >3cm Neck ROM: Full Loose/Missing/Broken Teeth: No (Caps top) Heart: RRR Lungs: CTAB Assessment and Plan Assessment Anesthesia Assessment: Anesthesia Plan Discussed Final Anesthetic Review Family History of Problems with Anesthesia: No History of Problems with Anesthesia: No NPO: Yes ASA Class: III Final Preanesthetic Review: No Changes in Pt Med Stat, Meds/Allgs Chart Reviewed, Consent Obtained/Reviewed and Anes Risks/Benef Reviewed Patient Risk: Intermediate Procedure Risk: Intermediate Assessment/Block/Sedation in SS: Assess/Block/Sedation-SS Anesthetic Plan Anesthetic Plan: GA Disposition: Standard PACU and Inp. Admit - Standard Bed
[2021-10-11] VITALS (15 sets, daily range): BP systolic 131–161; BP diastolic 78–105; PULSE 72–102; RESP 17–19; TEMP 36.3–37; O2SAT 96–100
[2021-10-11 09:04] LABS: UPreg QC Valid YES; Urine Pregnancy NEGATIVE (NEGATIVE)
[2021-10-11 09:24] LABS: COVID-19 Test Negative (Negative); IDNOW Serial# 9DD0AD1C
[2021-10-11] MEDS: Lactated Ringers 1,000 ML 999 ML IV (09:45)
--- NOTE | 2021-10-11 12:47 | PM.DS ---
DS: Providers Provider Date of Service: 10/12/21 Date of admission: 10/11/21 08:34 Primary care physician: Bruce Canchola MD DS: Summary Hospital Course Hospital Course: ADMITTING DIAGNOSIS: morbid obesity, rheumatoid arthritis DISCHARGE DIAGNOSIS: same, s/p laparoscopic sleeve gastrectomy PAST SURGICAL HISTORY: tonsillectomy PROCEDURE: upper endoscopy, laparoscopic sleeve gastrectomy DISCHARGE SUMMARY: History of Present Illness: The patient is a 35 year-old woman with a BMI of 50.9 kg/m2 and associated co-morbidities as described above. The patient had extensive work-up,lost 26.6 lbs preoperatively and was electively scheduled for laparoscopic, possible open sleeve gastrectomy and gastropexy. Risks and complications of the surgery were discussed with the patient in advance, particularly the possibility of , pulmonary embolism, anastomotic leak, bleeding, bowel injury, GERD, cardiac, renal or pulmonary complications. The patient understood all the risks and was in agreement with the surgical plan. Hospital Course: The patient underwent an uneventful laparoscopic sleeve gastrectomy with gastropexy on the day of admission. Postoperatively, the patient was transferred to the surgical floor. The patient received IV Acetaminophen and IV dilaudid for pain control. Patient was started on bariatric phase 1 diet POD #0. On postoperative day one, the patient was feeling well without nausea, vomiting, fevers, or tachycardia. The patient had some mild incisional pain and the abdomen was soft. On the morning of postoperative day one, the patient was continued on 1 ounce of water or ice every half hour. During the day, the patient did fairly well, having some incisional pain, but able to ambulate adequately and to tolerate liquids well. Since the patient is doing well, we decided that the patient was ready to be discharged. The patient was given instructions to follow-up with me next week and to call my office for any fever over 101, persistent abdominal pain, nausea, vomiting, GERD, symptoms of DVT such as calf tenderness, or leg swelling, or pulmonary embolism such as chest pain or shortness of breath. The patient was also instructed to drink 40-60 ounces of liquids per day using the 1-ounce cups. The patient had been given prescriptions for Tylenol for pain, Zofran prn for nausea, and pantoprazole and carafate previously. The patient was encouraged to ambulate and use the incentive spirometer. The patient was allowed to shower, but no baths, and encouraged to stay active at home. All of these instructions were given to the patient personally. All questions were answered and the patient understood all instructions, the instructions were also given to the patient in print. Time Spent with Patient Time attestation: Total time spent providing and/or coordinating discharge services: Discharge coordination time: Less than 30 minutes Quality: Stroke Does the patient have a stroke diagnosis?: No Physical Exam Vital Signs: Vital Signs: Last Vital Signs Temp 97.8 F 10/11/21 09:43 Pulse 98 10/11/21 09:43 Resp 18 10/11/21 09:43 BP 131/86 10/11/21 09:43 Pulse Ox 96 10/11/21 09:43 BMI result Body Mass Index 51.5 DS: Data Data Completed and Pending Pending studies at discharge: Pending at discharge 10/11/21 12:06 Surgical [PTH] Routine Labs on day of discharge: Laboratory Results - last 24 hr 10/11/21 10/11/21 08:41 08:47 Urine Test NEGATIVE COVID-19 (JESUS MANUEL) Negative COVID-19 Clin Com See Note Discharge Plan Discharge Anticipated Discharge Date/Time: 10/12/21 10:44 Patient Disposition: Home, Self-Care Discharge Diagnosis: s/p sleeve gastrectomy Referrals: Bruce Canchola MD [Primary Care Provider] - 1 Week Discharge Medications: Continued pantoprazole 40 mg tablet,delayed release (DR/EC) 40 mg PO DAILY Qty: 30 RF: 2 sucralfate 100 mg/mL suspension 10 ml PO BID Qty: 400 RF: 2 ondansetron HCl [Zofran] 4 mg tablet 4 mg PO Q12H Qty: 20 RF: 0 Held methotrexate sodium 2.5 mg tablet 25 mg PO QWEEK Qty: 40 RF: 2 Hold Instructions: Discuss when to restart with Dr Quintero Discontinued folic acid 1 mg tablet 1 mg PO DAILY Qty: 30 RF: 3 cholecalciferol (vitamin D3) 25 mcg (1,000 unit) capsule 25 mcg PO DAILY RF: 0 polyethylene glycol 3350 [Miralax] 17 gram powder in packet 17 g PO DAILY Qty: 14 RF: 0 Discharge Orders: Discharge Order (Routine); Ordered 10/12/21 Ordered By: Butch Raftopoulos Diet: other Activity on Discharge: No heavy lifting Stand Alone Forms: Patient Portal Discharge page Care Plan Goals: weight loss Health Concerns: morbid obesity Plan of Treatment: No tub baths, sex or returning to work until discussed at first post op appointment. No exercise, alcohol, tobacco or illegal drug use. Continue to use incentive spirometer hourly while awake. Walk in home for 5- 10 minutes every 2 hours during the first week. Continue phase 1 diet today and start phase 2 diet tomorrow morning. Follow all instructions in the bariatric handbook and call with any questions. 1. Please call your doctor or come back to the emergency room should any new symptoms arise. 2. You will receive a courtesy call from [facility] 24-48 hours after discharge. 3. Activity: abstain from alcohol, practice limited stair climbing, no bending, no driving, no exercise, no illicit substances, no lifting, no sex, no tub bath, no work. 4. Diet: continue as discussed with Dr. Quintero. 5. Dressing Change/Wound Care: Do not change or remove surgical dressings unless they are wet or soiled. 6. Call your doctor if: - Your temperature exceeds 101.5 F - You experience excessive pain or swelling - You have an unexpected reaction to medication - You have excessive bleeding - You experience continued vomiting/nausea - Your incision begins to separate - Your incision shows signs of infection such as increased redness, swelling, excessive pain, heat, or drainage (light blood or clear fluid is normal) 7. General instructions: No lifting greater than 5 lbs for the next 4 weeks[address] driving within 24 hours of taking narcotic pain medications. If you do not move your bowels in the next 2 days, please take milk of magnesia over the counter. Please follow the post op diet and do not advance your diet until you are seen in the office in about 2 weeks. Please walk around your home every hour or two to prevent blood clots from forming in your legs. You do not need to wake from sleeping to walk. Please sleep in a bed or couch to prevent kinking at the hips and knees. Please take your incentive spirometer (your lung bus transportation manager) home with you and use it for the next few days to prevent pneumonias. You may shower, no hot tubs, baths or swimming pools. Please call the office with any questions or concerns such as increasing abdominal pain, fever, chills, shortness of breath, chest pain, leg pain or swelling, or redness or drainage from your incisions. Do not hesitate to contact the office with any questions at . The patient's medical history has been reviewed and they are considered low risk for post op DVT and therefore DVT prophylaxis is not considered necessary. Travel after surgery was reviewed. The patient has not disclosed any travel plans during the first 30 days after surgery and they have been advised that within the first 30 days after surgery any bus, plane, train or car travel over 2 hours in duration is contraindicated due to the possibility of developing blood clots from immobility. Any travel, needs to include periods of ambulation of 10 minutes in duration every 2 hours. The patient was instructed to discuss any plans for travel during this period with their bariatric surgeon. Assessment: stable post op sleeve gastrectomy Discharge Date/Time: 10/12/21 16:20
[2021-10-11] MEDS: ondansetron HCL 4 MG/2 ML VIAL IVPUSH ×2 (12:55→17:33)
--- NOTE | 2021-10-11 13:00 | PM.OP ---
Brief Operative Note Date of Service: 10/11/21 Pre-op diagnosis: Morbid obesity and comorbidities (see below) Post-op diagnosis: same Procedure: INITIAL PATIENT BMI ON PRESENTATION AT OUR OFFICE: 56.1 kg/m2 LAST BMI BEFORE SURGERY: 52.7 kg/m2 COMORBIDITIES: depression, anxiety, PTSD, rheumatoid arthritis, liver fibrosis The patient participated in an intensive weekly lifestyle ?intervention and exercise program during which the patient ?has lost between the initial office visit and the last preoperative visit 29.6 lbs of initial actual body weight. The patient met the BMI-criteria for bariatric surgery based on the BMI on initial presentation. The patient should not be penalized for achieving such weight loss because ?it is not sustainable long-term without surgical intervention and it was achieved in preparation for bariatric surgery ?under my direction and based on my published research ([email or web address]) ?that a 10% preoperative weight loss improves long-term weight loss after surgery and reduces perioperative complications.? Insurance carriers such as [employer] have endorsed my recommendations ?and have included in their policies criteria to include a 10% preoperative weight loss requirement. PROCEDURE: Esophago-gastroscopy, laparoscopic repair of incarcerated diaphragmatic hernia, laparoscopic lysis of adhesions, laparoscopic sleeve gastrectomy and laparoscopic gastropexy INDICATIONS: This is a 35 year-old female who was electively scheduled for laparoscopic, possibly open sleeve gastrectomy. The risks and complications of the procedure were discussed with the patient in advance, particularly the possibility of ; pulmonary embolism; staple line leak; bleeding; GERD; cardiac, pulmonary, or renal complications; as well as long-term problems such as insufficient weight loss, vitamin deficiency, strictures, or ulcers. The patient understood all the risks, and was in agreement to proceed with surgery. DESCRIPTION OF PROCEDURE: After informed consent was obtained from the patient, the patient was given preoperative antibiotics, and was transferred to the operating room. After successful induction of general anesthesia, pneumatic compressive devices were placed on both lower extremities. An upper endoscopy was performed next. The oropharynx and esophagus appeared to be within normal limits. There was no diaphragmatic hernia present consistent with the findings of the preoperative upper GI. The stomach was entered. Then after all fluid and air were suctioned and the stomach was fully decompressed, the scope was withdrawn and secured in the mid esophagus. The patient was then prepped and draped in the usual sterile manner, and abdominal access was established at the right upper quadrant with the Kira technique. A 12 mm blunt port was inserted, and the abdomen was insufflated with CO2 to a pressure of 15 mmHg. Under direct visualization, additional ports were placed, specifically two 5 mm Versi-step ports to the left upper quadrant, and a 5 mm Versi-Step port to the right upper quadrant. 1% lidocained plan was used to infiltrate all port sites as well as all fascia defects. Using the EndoClose suture passer device, I placed a #1 Polysorb tie across the falciform ligament in order to retract it up against the abdominal wall and prevent injury of the ligament with our instruments during the procedure. Following that, the patient was placed in a steep reverse Trendelenburg position. An additional 5 mm port was placed to the right flank for the Mediflex retractor that was used to retract the left lobe of the liver. The gastro-esophageal fat pad was opened with the ultrasonic device (Thunderbeat, Olympus) and the anterior esophagus and hiatus were exposed. The angle of His was opened with the ultrasonic device the fundus of the stomach from any diaphragmatic and splenic attachments. I then opened the gastrocolic ligament between the transverse colon and the greater curvature of the stomach with the ultrasonic device to enter the lesser sac and facilitate the ligation of the short gastric vessels. I started at a mid-point along the greater curvature and using the Thunderbeat, all short gastric vessels were divided all the way to the angle of His until the left seema was completely dissected at its entirety. I then divided the gastro-colic ligament distally to a distance of about 3-4 cm proximal to the esophagus. There were extensive congenital adhesions between the pancreas and posterior gastric wall. Those were lysed completely with the ultrasonic device. Adhesiolysis took approximately 45 min to complete. The stomach was then divided transversely with one Endo ASHOK-45 purple, two ASHOK-45 orange and three ASHOK-60 articulating orange loads using the AEON stapler and loads. Every effort was made that the gastric sleeve had a tubular shape and an even caliber throughout. Once the sleeve resection was completed, the staple line of the gastric sleeve was reinforced with Hemoclips. The resected stomach was retrieved without difficulty from the Kira port. A gastropexy was then performed in order to prevent postoperative GERD and partial gastric volvulus. Several interrupted 2.0 Surgidac sutures were placed between the sleeve's staple line and the previously divided greater omentum and gastro-colic ligament using the Endo-Stitch device. ?An upper endoscopy was performed. There was no narrowing at the GE junction. The scope was easily advanced all the way to the pylorus which was clearly visualized. There was no narrowing anywhere and the sleeve's caliber was even throughout. The sleeve's staple line was inspected and there was no evidence of ischemia, bleeding or dehiscence. At that point the gastroscope was withdrawn from the patient?s mouth while we were decompressing the bowel and the stomach from any remaining air. I looked into the lesser sac to see how the sleeve was situating and it was situating well. There was no bleeding from the staple line, spleen, or short gastric vessels. The Mediflex retractor was removed, and the undersurface of the liver was inspected and there was no bleeding. The patient was placed in supine position. I closed the fascial defect of the 12 mm port site with a figure of eight #1 Polysorb suture. Then 100 cc 0.25 % Marcaine plain with 10 mg of Dexamethasone were used to infiltrate the fascial closure as well as all skin incisions. At this point, the abdomen was deflated, all ports were removed under direct vision, and no bleeding was noted from any of the port sites. The skin incisions were irrigated with saline and were closed with 4-0 absorbable monofilament sutures. Steri-Strips and OpSites were used to cover all incisions. The patient was extubated and was transferred in stable condition to the recovery room for further care. I was present and performed all coronado parts of the procedure. Ms. Cabrerason was the faculty i on call medical assistant. There were no residents to assist with this case. Chris Quintero MD, PhD, FACS Surgeon: Butch Quintero MD Anesthesia: GETA, local and other (TAP block) Was an Weaver Axminster used for this Procedure?: No Weaver Axminster: Hamida Morales Estimated blood loss (mL): 10 IV fluids (mL): 2,100 Urine output (mL): 0 (No Christie to gravity) Pathology: other (Stomach) Condition: stable Disposition: PACU
--- NOTE | 2021-10-11 13:15 | P.PNGS_ITS ---
Subjective Subjective Date of Service: 10/12/21 Interval history: Patient has mild incisional pain, but was able to ambulate and use the incentive spirometer. She is tolerating phase 1 bariatric diet Physical Exam Vital Signs: Vital Signs: Last Vital Signs Temp 97.8 F 10/11/21 09:43 Pulse 98 10/11/21 09:43 Resp 18 10/11/21 09:43 BP 131/86 10/11/21 09:43 Pulse Ox 96 10/11/21 09:43 BMI result Body Mass Index 51.5 GI: Inspection: Yes normal to inspection, Yes incision (clean, dry and intact) and Yes obesity Extrem: Right lower extremity: normal to inspection (no calf tenderness) Left lower extremity: normal to inspection (no calf tenderness) Objective Data Active Medications Fentanyl (Fentanyl Citrate/Pf 100 Mcg/2 Ml Vial) 25 mcg IVPUSH Q5M PRN; Protocol PRN Reason: Pain, Moderate (Pain Scale 4-6 Hydromorphone HCl (Hydromorphone Hcl 0.5 Mg/0.5 Ml Syringe) 0.25 mg IVPUSH Q5M PRN; Protocol PRN Reason: Pain, Severe (Pain Scale 7-10) Lactated Ringer's (Lr) 1,000 mls @ 100 mls/hr IVCONT .Q10H ARLENE Promethazine HCl 6.25 mg/ (Sodium Chloride) 50.25 mls @ 201 mls/hr IV ONCE PRN PRN Reason: Nausea and Vomiting Last Admin: 10/11/21 13:06 Dose: 201 mls/hr Documented by: SUSHMA Ondansetron HCl (Ondansetron Hcl 4 Mg/2 Ml Vial) 4 mg IVPUSH ONCE PRN PRN Reason: Nausea and Vomiting Last Admin: 10/11/21 12:55 Dose: 4 mg Documented by: SUSHMA Labs CBC & Chem 7: 10/12/21 05:36 10/12/21 05:36 Labs: Laboratory Results - last 24 hr 10/11/21 10/11/21 08:41 08:47 Urine Test NEGATIVE COVID-19 ([facility]) Negative COVID-19 Clin Com See Note Procedures Date of Service Date of Service: 10/12/21 Progress Note: A&P Assessment and plan (1) Morbid obesity: Status: Acute Assessment and Plan: s/p laparoscopic sleeve gastrectomy, lysis of adhesions and gastropexy Doing well Check am labs. If OK, will discharge home? (2) Hypothyroidism: Status: Acute (3) S/P laparoscopic sleeve gastrectomy: Status: Acute (4) Rheumatoid arthritis: Status: Acute (5) Depression: Status: Acute (6) Anxiety: Status: Acute (7) Liver fibrosis: Status: Acute (8) Congenital intra-abdominal adhesions: Status: Acute Fall Risk Details Current Medications: Current Medications Fentanyl (Fentanyl Citrate/Pf 100 Mcg/2 Ml Vial) 25 mcg IVPUSH Q5M PRN; Protocol PRN Reason: Pain, Moderate (Pain Scale 4-6 Hydromorphone HCl (Hydromorphone Hcl 0.5 Mg/0.5 Ml Syringe) 0.25 mg IVPUSH Q5M PRN; Protocol PRN Reason: Pain, Severe (Pain Scale 7-10) Lactated Ringer's (Lr) 1,000 mls @ 100 mls/hr IVCONT .Q10H ARLENE Promethazine HCl 6.25 mg/ (Sodium Chloride) 50.25 mls @ 201 mls/hr IV ONCE PRN PRN Reason: Nausea and Vomiting Last Admin: 10/11/21 13:06 Dose: 201 mls/hr Documented by: Ondansetron HCl (Ondansetron Hcl 4 Mg/2 Ml Vial) 4 mg IVPUSH ONCE PRN PRN Reason: Nausea and Vomiting Last Admin: 10/11/21 12:55 Dose: 4 mg Documented by: Time Spent With Patient Time: Total time spent is greater than 50% in coordination of care (as docu mented) at patient's floor/unit and/or counseling patient: Time with patient: less than 15 minutes Quality Stroke Does the patient have a stroke diagnosis?: No VTE Prior VTE?: No VTE Risk Level:: Surgical - moderate VTE Device Contraindication: N/A - Device Ordered VTE Drug Contraindication: Treatment Not Indicated
[2021-10-11] MEDS: Lactated Ringers 1,000 ML 100 ML IVCONT ×2 (13:36→22:49)
[2021-10-11 13:45] LABS: Hematocrit 40.9 % (37.0-47.0); Hemoglobin 12.9 g/dl (12.0-16.0)
[2021-10-11] MEDS: Famotidine/PF 20 MG/2 ML VIAL IVPUSH ×2 (13:53→20:48)
[2021-10-11 14:05] LABS: Anion Gap 13 (12-20); Blood Urea Nitrogen 9 mg/dL (9-16); Calcium 8.7 mg/dL (8.4-10.2); Carbon Dioxide 21 mmol/L (22-29); Chloride 108 mmol/L (96-108); Creatinine Clr Calc Pharmacy 139.5; Estimated Glomerular Filt Rate > 60; Glucose Random 102 mg/dL (60-115); Potassium 4.4 mmol/L (3.3-5.1); Sodium 138 mmol/L (135-145)
[2021-10-11] MEDS: Metoclopramide HCl 10 MG/2 ML VIAL IVPUSH (19:49)
[2021-10-11] MEDS: 0.9 % Sodium Chloride Flush 3 ML SYRINGE IVFLUSH (19:50)
[2021-10-12] VITALS: BP 148/69; PULSE 89; RESP 16; TEMP 36.6; O2SAT 91
[2021-10-12 00:22] VITALS: O2SAT 95
[2021-10-12 04:00] VITALS: BP 135/79; PULSE 86; RESP 16; TEMP 36.3; O2SAT 95
[2021-10-12] MEDS: Metoclopramide HCl 10 MG/2 ML VIAL IVPUSH (04:53)
[2021-10-12 05:45] LABS: MANUAL DIFF FLAG NO
[2021-10-12 05:49] LABS: Basophils Percent Auto 0.1 % (0-2); Hematocrit 36.8 % (37.0-47.0); Hemoglobin 11.8 g/dl (12.0-16.0); Imm Gran Abs Auto 0.04 X10*3/uL (0.00-0.03); Imm Gran Pct Auto 0.3 % (0.0-0.4); Lymphocytes Absolute Auto 1.2 X10*3/uL (1.2-4.9); Lymphocytes Percent Auto 10.1 % (20-40); Mean Corpuscular HGB Conc 32.1 g/dl (31.0-35.0); Mean Corpuscular Hemoglobin 28.5 pg (27.0-33.0); Mean Corpuscular Volume 88.9 fL (80.0-98.0); Mean Platelet Volume 9.5 fL (9.4-12.3); Monocytes Absolute Auto 0.9 X10*3/uL (0.1-1.2); Monocytes Percent Auto 7.7 % (2-11); Neutrophils Absolute Auto 9.4 x10*3/uL (2.0-8.3); Neutrophils Percent Auto 81.8 % (45-73); Platelet Count 311 X10*3/uL (160-400); Red Blood Count 4.14 X10*6/uL (4.20-5.50); White Blood Count 11.5 X10*3/uL (4.8-10.8)
[2021-10-12 06:10] LABS: Anion Gap 13 (12-20); Blood Urea Nitrogen 8 mg/dL (9-16); Calcium 9.1 mg/dL (8.4-10.2); Carbon Dioxide 19 mmol/L (22-29); Chloride 109 mmol/L (96-108); Creatinine Clr Calc Pharmacy 155.2; Estimated Glomerular Filt Rate > 60; Glucose Random 110 mg/dL (60-115); Potassium 4.3 mmol/L (3.3-5.1); Sodium 137 mmol/L (135-145)
[2021-10-12 08:00] VITALS: BP 138/67; PULSE 76; RESP 17; TEMP 36.5; O2SAT 98
[2021-10-12] MEDS: Famotidine/PF 20 MG/2 ML VIAL IVPUSH (08:42)
[2021-10-12] MEDS: 0.9 % Sodium Chloride Flush 3 ML SYRINGE IVFLUSH (08:42)
[2021-10-12] MEDS: ondansetron HCL 4 MG/2 ML VIAL IVPUSH ×2 (08:49)
[2021-10-12] MEDS: Lactated Ringers 1,000 ML 100 ML IVCONT (09:33)
[2021-10-12 09:55] VITALS: O2SAT 98
--- NOTE | 2021-10-12 14:11 | HO.POSTANES ---
Post Anesthesia Evaluation Post Anesthesia Evaluation Vital Signs: Vital Signs Temp Pulse Resp BP Pulse Ox 10/12/21 09:55 98 10/12/21 08:00 97.7 F 76 17 138/67 98 10/12/21 04:00 97.4 F 86 16 135/79 95 Anesthesia: General Endotracheal-GETA Mental Status: Awake Pain Control: Satisfactory Nausea/Vomiting: None Hydration: Adequate Anesthesia-Related Issues: No Anes. Related Issues
--- NOTE | 2021-10-12 14:31 | MHC.CM.PN ---
nurse porter sample case note electronic medical record reviewed along with case disucssed with staff nurse and reviewed electronic medical record . met with patirnt she lives with her partner , she is currently employed, she just finished college and looking for a job, she is now post op day one bariatric surgery , patient is active and independent inall adls and mobility. she has history of anxiety and depression currenly is on no medications and does not see a mental health counselor , she reported that weverything is under vontrol and she will reach out to her pcp if needed. educated about the importance of having a health care prosy but declined to complete one with this admission discharge home no services pcp matthew lamas , instructed to call for post hospitla follow up bariatric surgcial follow up as indicated on the discharge instructions transportation family
== END 2021-10-12 16:20 | disposition home or self-care (01) | DRG 403 ==
LOC: HO.SSSA 12:47 → HO.S3 16:08
PROVIDERS: Nurse Practitioner; Physician Assistant; Admitting Provider Surgery; PCP Internal Medicine; Visit Provider Surgery
PROC: 0DB64Z3 Excision of Stomach, Percutaneous Endoscopic Approach, Vertical (ICD-10-PCS; CPT 43845; principal; 2021-10-11 10:10)
DX: E66.01 Morbid (severe) obesity due to excess calories (principal); K74.00 Hepatic fibrosis, unspecified; F41.9 Anxiety disorder, unspecified; K66.0 Peritoneal adhesions (postprocedural) (postinfection); M06.9 Rheumatoid arthritis, unspecified; Z68.43 Body mass index [BMI] 50.0-59.9, adult; F43.10 Post-traumatic stress disorder, unspecified; Z20.822 Contact with and (suspected) exposure to COVID-19; Z87.891 Personal history of nicotine dependence; Z79.899 Other long term (current) drug therapy
CPT/HCPCS: 36415; 80048; 80053; 80061; 81025; 83036; 83525; 84443; 85014; 85018; 85025; 85610; 85730; 86140; 86850; 86900; 86901; 87635; 88307; 88342; 99024; A4649; J0131; J0690; J1100; J1170; J2250; J2405; J2550; J2765; J3010

== ENCOUNTER → 2021-10-19 09:24 | Outpatient (BNVA) | payer OTHER, SELFPAY | PROVIDERS: PCP Internal Medicine; Referring Provider Internal Medicine; Visit Provider Surgery | DX: E66.01 Morbid (severe) obesity due to excess calories (principal); Z68.42 Body mass index [BMI] 45.0-49.9, adult | CPT/HCPCS: 99212 ==

== ENCOUNTER → 2021-11-20 08:27 | Outpatient (BNVA) | payer OTHER, SELFPAY | PROVIDERS: PCP Internal Medicine; Visit Provider Physician Assistant Surgical ==

== ENCOUNTER → 2021-12-06 16:11 | Outpatient (BNVA) | payer OTHER, SELFPAY | PROVIDERS: PCP Internal Medicine; Visit Provider Physician Assistant Surgical ==

== ENCOUNTER 2022-01-29 00:31 | Emergency (ER) | payer OTHER, SELFPAY ==
[2022-01-29 00:41] VITALS: BP 150/99; PULSE 88; RESP 18; TEMP 36.9; O2SAT 98; BMI 46.3
[2022-01-29 01:12] LABS: MANUAL DIFF FLAG NO
[2022-01-29 01:13] LABS: Basophils Percent Auto 0.3 % (0-2); Eosinophils Absolute Auto 0.1 X10*3/uL (0.0-0.4); Eosinophils Percent Auto 1.8 % (0-4); Hematocrit 37.9 % (37.0-47.0); Hemoglobin 12.2 g/dl (12.0-16.0); Imm Gran Abs Auto 0.02 X10*3/uL (0.00-0.03); Imm Gran Pct Auto 0.3 % (0.0-0.4); Lymphocytes Absolute Auto 0.9 X10*3/uL (1.2-4.9); Lymphocytes Percent Auto 13.8 % (20-40); Mean Corpuscular HGB Conc 32.2 g/dl (31.0-35.0); Mean Corpuscular Hemoglobin 28.6 pg (27.0-33.0); Mean Platelet Volume 9.5 fL (9.4-12.3); Monocytes Absolute Auto 0.6 X10*3/uL (0.1-1.2); Monocytes Percent Auto 8.5 % (2-11); Neutrophils Absolute Auto 5.1 x10*3/uL (2.0-8.3); Neutrophils Percent Auto 75.3 % (45-73); Platelet Count 303 X10*3/uL (160-400); Red Blood Count 4.26 X10*6/uL (4.20-5.50); White Blood Count 6.8 X10*3/uL (4.8-10.8)
[2022-01-29 01:14] LABS: Appearance Urine CLOUDY; Color Urine DK YELLOW; Glucose Urine UA NEG (NEG); Leukocyte Esterase Urine 2+ (NEG); Nitrite Urine NEG (NEG); Specific Gravity - Urine >= 1.030 (1.005-1.025); UACC Culture Trigger YES; Urine Blood NEG (NEG); Urine Ketones 5 MG/DL (NEG); Urine Protein TRACE MG/DL (NEG-TRACE)
[2022-01-29 01:16] LABS: UPreg QC Valid YES; Urine Pregnancy NEGATIVE (NEGATIVE)
[2022-01-29 01:20] LABS: Bacteria Urine 2+ /LPF; RBC Urine 0 /HPF (0); Squamous Epithelial Cell Urine 4+ /LPF
[2022-01-29 01:25] LABS: COVID-19 Test Negative (Negative)
[2022-01-29 01:39] LABS: Alanine Aminotransferase 183 U/L (0-31); Albumin Level 3.9 g/dL (3.5-5.0); Alkaline Phosphatase 123 U/L (39-117); Anion Gap 16 (12-20); Aspartate Amino Transferase 269 U/L (5-31); Bilirubin Total 1.4 mg/dL (0.0-1.0); Blood Urea Nitrogen 9 mg/dL (9-16); Calcium 9.3 mg/dL (8.4-10.2); Carbon Dioxide 18 mmol/L (22-29); Chloride 107 mmol/L (96-108); Creatinine Clr Calc Pharmacy 142.1; Estimated Glomerular Filt Rate > 60; Glucose Random 115 mg/dL (60-115); Lipase 35 U/L (8-78); Potassium 4.1 mmol/L (3.3-5.1); Sodium 137 mmol/L (135-145); Total Protein 7.2 g/dL (6.5-8.0)
== END 2022-01-29 02:49 | disposition left against medical advice (07) ==
PROVIDERS: Emergency Provider Emergency Medicine; PCP Internal Medicine
DX: R10.10 Upper abdominal pain, unspecified (principal); Z98.84 Bariatric surgery status
CPT/HCPCS: 36415; 80053; 81001; 81025; 83690; 85025; 87086; 87635; 99283

== ENCOUNTER 2022-08-28 07:58 | Emergency (ER) | payer OTHER, SELFPAY ==
[2022-08-28 08:38] VITALS: BP 137/86; PULSE 61; RESP 20; TEMP 36.1; O2SAT 97; BMI 42.7
== END 2022-08-28 13:46 | disposition left against medical advice (07) ==
PROVIDERS: Emergency Provider Emergency Medicine; PCP Internal Medicine
DX: R10.13 Epigastric pain (principal); Z98.84 Bariatric surgery status
CPT/HCPCS: 99281

== ENCOUNTER → 2022-10-15 11:27 | Outpatient (BNVA) | payer OTHER, SELFPAY | PROVIDERS: PCP Internal Medicine; Visit Provider Physician Assistant Surgical | DX: E66.01 Morbid (severe) obesity due to excess calories (principal); Z98.84 Bariatric surgery status; Z68.41 Body mass index [BMI] 40.0-44.9, adult | CPT/HCPCS: 99212 ==

== ENCOUNTER 2022-10-17 12:45 | Emergency (ER) | payer OTHER, SELFPAY ==
--- NOTE | ~2022-10-17 | US_ITS ---
EXAMINATION: US ABDOMEN LIMITED CLINICAL INFORMATION: Abnormal LFTs. COMPARISON: 08/27/2021 abdominal ultrasound. TECHNIQUE: Real-time imaging of the right upper quadrant abdominal viscera. FINDINGS: PANCREAS: Visualized portions unremarkable. LIVER: Unremarkable. GALLBLADDER: Multiple small dependent echogenic calculi are seen. No mural thickening or pericholecystic fluid. COMMON BILE DUCT: Normal in caliber measuring 0.4 cm in diameter. RIGHT KIDNEY: 12.1 cm. Echogenic focus in the lower pole measures 0.5 cm. No hydronephrosis. Color Doppler showed no abnormal vascular flow. FREE FLUID: None. US/US abdomen limited IMPRESSION: Cholelithiasis without evidence for acute cholecystitis.
[2022-10-17 13:00] VITALS: BP 148/93; PULSE 72; RESP 20; TEMP 36.3; O2SAT 98; BMI 40.3
--- NOTE | 2022-10-17 13:01 | ED_ITS ---
HPI - Abdominal Pain General Chief Complaint: Abdominal Pain <Indira Fermin NP - Last Filed: 10/17/22 13:04> Stated Complaint: Abdominal Pain <Indira Fermin NP - Last Filed: 10/17/22 13:04> Time Seen by Provider: 10/17/22 15:48 <Indira Fermin NP - Last Filed: 10/17/22 13:04> Source: patient <Delbert Villareal MD - Last Filed: 10/17/22 16:32> Mode of arrival: ambulatory <Delbert Villareal MD - Last Filed: 10/17/22 16:32> Limitations: no limitations <Delbert Villareal MD - Last Filed: 10/17/22 16:32> History of Present Illness HPI narrative: abdominal pain since yesterday. Patient not able to eat or drink, upper abdomen into her back. Patient has had a gastric sleeve. Patient is on eliquis for recent hip replacement <Delbert Villareal MD - Last Filed: 10/17/22 16:32> MD elicited complaint: abdominal pain <Delbert Villareal MD - Last Filed: 10/17/22 16:32> Pertinent past history: gastritis <Delbert Villareal MD - Last Filed: 10/17/22 16:32> Onset (ago): day(s) <Delbert Villareal MD - Last Filed: 10/17/22 16:32> Pain Consistency: intermittent <Delbert Villareal MD - Last Filed: 10/17/22 16:32> Location: epigastric <Delbert Villareal MD - Last Filed: 10/17/22 16:32> Quality: aching <Delbert Villareal MD - Last Filed: 10/17/22 16:32> Radiation: epigastric <Delbert Villareal MD - Last Filed: 10/17/22 16:32> Migration to: bilateral flank <Delbert Villareal MD - Last Filed: 10/17/22 16:32> Exacerbating factors: eating <Delbert Villareal MD - Last Filed: 10/17/22 16:32> Associated symptoms: denies other symptoms, nausea and vomiting <Delbert Villareal MD - Last Filed: 10/17/22 16:32> Related Data Home Medications: Previous Rx's Medication Instructions Recorded methotrexate sodium 2.5 mg tablet 25 mg PO QWEEK #40 tabs 09/29/21 fluoxetine 20 mg capsule (Prozac) 20 mg PO DAILY #60 caps 05/15/22 <Indira Fermin NP - Last Filed: 10/17/22 13:04> Allergies/Adverse Reactions: Allergies Allergy/AdvReac Type Severity Reaction Status Date / Time prednisone Allergy Severe Hives Verified 08/28/22 08:38 <Indira Fermin NP - Last Filed: 10/17/22 13:04> Review of Systems Constitutional: Reports no additional constitutional complaints <Delbert Villareal MD - Last Filed: 10/17/22 16:32> Eyes: Reports no additional eye complaints <Delbert Villareal MD - Last Filed: 10/17/22 16:32> Denies dizziness <Delbert Villareal MD - Last Filed: 10/17/22 16:32> Cardiovascular: Reports no additional cardiovascular complaints <Delbert Villareal MD - Last Filed: 10/17/22 16:32> Respiratory: Reports as per HPI <Delbert Villareal MD - Last Filed: 10/17/22 16:32> Gastrointestinal: Reports no additional gastrointestinal complaints <Delbert Villareal MD - Last Filed: 10/17/22 16:32> Genitourinary: Reports no additional female genitourinary complaints <Delbert Villareal MD - Last Filed: 10/17/22 16:32> Musculoskeletal: Reports no additional musculoskeletal complaints <Delbert Villareal MD - Last Filed: 10/17/22 16:32> Skin/Breast: Denies rash <Delbert Villareal MD - Last Filed: 10/17/22 16:32> Reports system reviewed and no additional complaints, except as documented, Denies dizziness and Denies Sensory deficit (Neuro) <Delbert Villareal MD - Last Filed: 10/17/22 16:32> Psychiatric: Denies anxiety <Delbert Villareal MD - Last Filed: 10/17/22 16:32> PMFSH Past Medical History Medical History: Medical History DIVYA positive Anxiety BMI 50.0-59.9, adult Cough Depression Encounter for gastric sleeve procedure Hypothyroidism Joint pain Liver fibrosis Morbid obesity Morbid obesity Physical exam Pre-op evaluation Rheumatoid arthritis Vitamin D deficiency <Indira Fermin NP - Last Filed: 10/17/22 13:04> Surgical History: Surgical History History of root canal procedure S/P tonsillectomy <Indira Fermin NP - Last Filed: 10/17/22 13:04> Family History Family History: Family History Father No problems noted. Mother No problems noted. Sister No problems noted. <Indira Fermin NP - Last Filed: 10/17/22 13:04> Social History Social History: Social History Housing: Apartment Are you a primary hemodialysis patient care specialist to a significant other at home: No Do you presently have visiting nurse or other home services: No Alcohol intake: never Patient Tobacco Use Status: Former Tobacco user Quit Date: 2 yrs ago- Now rare 1 cig infrequently Tobacco use type: Cigarette Cigarette Packs Per Day: 0 Cigarettes Per Day: 0 Years Smoked: 10 e-Cigarette/Vaping Use: Never Used Second Hand Smoke Exposure: No Substance Use Type: Marijuana Advance Directives: No Advance Directives Information Provided: Yes service: No Current occupational status: unemployed <Indira Fermin NP - Last Filed: 10/17/22 13:04> Physical Exam ED Vital Signs: Vital Signs - 24 hr 10/17/22 13:00 Temperature 97.4 F Pulse Rate 72 Respiratory Rate 20 Blood Pressure 148/93 H Pulse Oximetry 98 Oxygen Delivery Method Room Air BMI result Body Mass Index 40.3 <Indira Fermin NP - Last Filed: 10/17/22 13:04> Vital Signs - 24 hr 10/17/22 13:00 Temperature 97.4 F Pulse Rate 72 Respiratory Rate 20 Blood Pressure 148/93 H Pulse Oximetry 98 Oxygen Delivery Method Room Air BMI result Body Mass Index 40.3 <Delbert Villareal MD - Last Filed: 10/17/22 16:32> Const General: healthy appearing <Delbert Villareal MD - Last Filed: 10/17/22 16:32> Nutritional Appearance: average body habitus <Delbert Villareal MD - Last Filed: 10/17/22 16:32> Orientation/consciousness: oriented to person and patient oriented x3 <Delbert Villareal MD - Last Filed: 10/17/22 16:32> Limitations: no limitations <Delbert Villareal MD - Last Filed: 10/17/22 16:32> HENMT Head: Yes normal to inspection <Delbert Villareal MD - Last Filed: 10/17/22 16:32> Ears: external ears normal <Delbert Villareal MD - Last Filed: 10/17/22 16:32> General nose exam: Normal external nose present <Delbert Villareal MD - Last Filed: 10/17/22 16:32> Mouth: Normal oral and palatal mucosa present and oropharynx normal <Delbert Villareal MD - Last Filed: 10/17/22 16:32> Throat: Yes posterior oropharynx normal <Delbert Villareal MD - Last Filed: 10/17/22 16:32> Eyes General: appearance normal, both eyes and all related structures <Delbert Villareal MD - Last Filed: 10/17/22 16:32> Neck Neck: Yes normal visual inspection <Delbert Villareal MD - Last Filed: 10/17/22 16:32> Chest Chest palpation & inspection: normal inspection of the chest <Delbert Villareal MD - Last Filed: 10/17/22 16:32> Resp Auscultation: clear to auscultation bilaterally <Delbert Villareal MD - Last Filed: 10/17/22 16:32> Cardio Jugular venous distension: no JVD <Delbert Villareal MD - Last Filed: 10/17/22 16:32> Rate: regular rate <Delbert Villareal MD - Last Filed: 10/17/22 16:32> Rhythm: regular rhythm <Delbert Villareal MD - Last Filed: 10/17/22 16:32> Heart sounds: S1 normal heart sound present and S2 normal heart sound present <Delbert Villareal MD - Last Filed: 10/17/22 16:32> GI Inspection: Yes normal to inspection <Delbert Villareal MD - Last Filed: 10/17/22 16:32> Palpation (GI): Soft to palpation, nontender and No hepatosplenomegaly present <Delbert Villareal MD - Last Filed: 10/17/22 16:32> Auscultation: normal bowel sounds <Delbert Villareal MD - Last Filed: 10/17/22 16:32> General: Yes no CVA tenderness <Delbert Villareal MD - Last Filed: 10/17/22 16:32> Back/Spine/Pelvis Back: no CVA tenderness <Delbert Villareal MD - Last Filed: 10/17/22 16:32> Skin General skin exam: no rashes or lesions noted <Delbert Villareal MD - Last Filed: 10/17/22 16:32> Neuro General: oriented to person and patient oriented x3 <Delbert Villareal MD - Last Filed: 10/17/22 16:32> Cranial nerves: Yes CN's II-XII intact bilaterally <Delbert Villareal MD - Last Filed: 10/17/22 16:32> Motor exam (neuro): 5/5 motor strength present throughout <Delbert Villareal MD - Last Filed: 10/17/22 16:32> Sensory Exam: No Sensory deficit (Neuro) <Delbert Villareal MD - Last Filed: 10/17/22 16:32> Extrem General: Yes normal to inspection <Delbert Villareal MD - Last Filed: 10/17/22 16:32> Psych Appearance: grossly normal <Delbert Villareal MD - Last Filed: 10/17/22 16:32> Course Course Course Narrative: This is rapid medical exam. Deferred additional HPI, ROS, PE to primary provider. 36 yo female with history of gastric sleeve (Raftopoulos October 2021) here with complaints of epigastric pain, vomiting, radiation of pain to her back/chest since last night. Check labs, EKG, viral testing, UA. VSS <Indira Fermin NP - Last Filed: 10/17/22 13:04> Reevaluation(s) Reevaluation #1: spoke with Bonnie from bariatric surgery, will obtain Biliary US and sign out to Dr REYNOSO <Delbert Villareal MD - Last Filed: 10/17/22 16:32> Discharge Plan Discharge Clinical Impression: Abdominal pain, Abnormal LFTs <Indira Fermin NP - Last Filed: 10/17/22 13:04> Patient Disposition: Still a Patient <Indira Fermin NP - Last Filed: 10/17/22 13:04> Prescriptions: No Action methotrexate sodium 2.5 mg tablet 25 mg PO QWEEK Qty: 40 2RF Hold Instructions: Discuss when to restart with Dr Quintero fluoxetine [Prozac] 20 mg capsule 20 mg PO DAILY Qty: 60 3RF <Indira Fermin NP - Last Filed: 10/17/22 13:04>
--- NOTE | 2022-10-17 13:03 | ECG_ITS ---
Test Reason : abdominal pain Blood Pressure : / mmHG Vent. Rate : 086 BPM Atrial Rate : 086 BPM P-R Int : 134 ms QRS Dur : 086 ms QT Int : 380 ms P-R-T Axes : 055 037 014 degrees QTc Int : 454 ms Normal sinus rhythm with sinus arrhythmia Normal ECG When compared with ECG of 07-DEC-2020 13:55, T wave inversion more evident in Inferior leads Referred By: Indira Fermin Electronically Signed By:LELE LEVIN MD
[2022-10-17 14:03] LABS: MANUAL DIFF FLAG NO
[2022-10-17 14:09] LABS: Basophils Percent Auto 0.3 % (0-2); Eosinophils Absolute Auto 0.1 X10*3/uL (0.0-0.4); Eosinophils Percent Auto 2.3 % (0-4); Hematocrit 35.1 % (37.0-47.0); Imm Gran Abs Auto 0.01 X10*3/uL (0.00-0.03); Imm Gran Pct Auto 0.2 % (0.0-0.4); Lymphocytes Percent Auto 17.4 % (20-40); Mean Corpuscular HGB Conc 31.3 g/dl (31.0-35.0); Mean Corpuscular Hemoglobin 27.4 pg (27.0-33.0); Mean Corpuscular Volume 87.3 fL (80.0-98.0); Monocytes Absolute Auto 0.6 X10*3/uL (0.1-1.2); Monocytes Percent Auto 9.2 % (2-11); Neutrophils Absolute Auto 4.2 x10*3/uL (2.0-8.3); Neutrophils Percent Auto 70.6 % (45-73); Platelet Count 346 X10*3/uL (160-400); Red Blood Count 4.02 X10*6/uL (4.20-5.50); Red Cell Distribution Width 15.6 % (11.0-16.0)
[2022-10-17 14:20] LABS: Alanine Aminotransferase 116 U/L (0-31); Alkaline Phosphatase 140 U/L (39-117); Anion Gap 11 (12-20); Aspartate Amino Transferase 121 U/L (5-31); Bilirubin Direct 1.2 mg/dL (0.0-0.5); Bilirubin Total 1.7 mg/dL (0.0-1.0); Blood Urea Nitrogen 12 mg/dL (9-16); Calcium 9.3 mg/dL (8.4-10.2); Carbon Dioxide 26 mmol/L (22-29); Chloride 105 mmol/L (96-108); Creatinine Clr Calc Pharmacy 125.9; Estimated Glomerular Filt Rate > 60; Glucose Random 81 mg/dL (60-115); Lipase 28 U/L (8-78); Potassium 3.9 mmol/L (3.3-5.1); Sodium 138 mmol/L (135-145); Total Protein 7.1 g/dL (6.5-8.0)
[2022-10-17 14:25] LABS: Troponin-I High Sensitivity < 3.5 ng/L (<3.5-17.0)
[2022-10-17 14:51] LABS: Influenza A PCR NEGATIVE (Negative); Influenza B PCR NEGATIVE (Negative); Resp Syncy Virus RNA Qual PCR NEGATIVE (Negative); SARS COV2 PCR INHOUSE NEGATIVE (Negative)
[2022-10-17 16:58] VITALS: BP 138/80; PULSE 80; RESP 16; TEMP 38; O2SAT 100
== END 2022-10-17 19:55 | disposition still patient (30) ==
PROVIDERS: Nurse Practitioner Family; Emergency Provider Emergency Medicine Emergency Medical Services; PCP Internal Medicine
DX: R10.13 Epigastric pain (principal); R79.89 Other specified abnormal findings of blood chemistry; Z20.822 Contact with and (suspected) exposure to COVID-19; Z79.899 Other long term (current) drug therapy
CPT/HCPCS: 0241U; 36415; 76705; 80048; 80076; 83690; 84484; 85025; 93005; 99284

== ENCOUNTER 2022-11-05 07:43 | Outpatient (REF) | payer OTHER, SELFPAY ==
--- NOTE | ~2022-11-05 | MR_ITS ---
EXAMINATION: MR ABDOMEN WITHOUT CONTRAST CLINICAL INFORMATION: Calculus of the common bile duct COMPARISON: Abdominal ultrasound 10/17/2022 TECHNIQUE: MRI of the abdomen without contrast was obtained using routine sequences. Heavily T2 weighted MRCP sequences were also obtained. FINDINGS: Exam is technically limited by the [id number] and the upper portion of the abdomen was excluded from axial sequences including the upper portion of the liver, stomach and spleen. LUNG BASES: The visualized lung bases are unremarkable. KIDNEYS AND URETERS: Unremarkable. GALLBLADDER: Cholelithiasis without evidence of acute cholecystitis. LIVER AND BILIARY TREE: No loss of signal on opposed phase imaging to suggest hepatic steatosis. No intra or extrahepatic biliary duct dilatation. No intraluminal filling defect to suggest choledocholithiasis. PANCREAS: Unremarkable SPLEEN: Unremarkable ADRENAL GLANDS: Unremarkable GASTROINTESTINAL TRACT: Unremarkable. LYMPH NODES: No lymphadenopathy. VASCULAR: Unremarkable ABDOMINAL WALL: Unremarkable. OSSEOUS STRUCTURES: Unremarkable. MR/MR MRCP IMPRESSION: Cholelithiasis without evidence of acute cholecystitis. No intra or extrahepatic biliary duct dilatation or intraluminal filling defect to suggest choledocholithiasis. Technically limited exam which excludes portions of the upper abdomen, as detailed above.
== END 2022-11-05 07:44 | disposition home or self-care (01) ==
LOC: HO.MRI 07:43
PROVIDERS: Visit Provider Physician Assistant Surgical
DX: K80.50 Calculus of bile duct without cholangitis or cholecystitis without obstruction (principal)
CPT/HCPCS: 74181

== ENCOUNTER → 2022-11-20 10:54 | Outpatient (BNVA) | payer OTHER, SELFPAY | PROVIDERS: PCP Internal Medicine; Visit Provider Physician Assistant Surgical | DX: K80.50 Calculus of bile duct without cholangitis or cholecystitis without obstruction (principal); E66.01 Morbid (severe) obesity due to excess calories; Z98.84 Bariatric surgery status | CPT/HCPCS: 99212 ==

== ENCOUNTER 2022-11-26 10:11 | Outpatient (REF) | payer OTHER, SELFPAY ==
[2022-11-26 10:24] LABS: MANUAL DIFF FLAG NO
[2022-11-26 11:06] LABS: Basophils Percent Auto 0.5 % (0-2); Eosinophils Absolute Auto 0.1 X10*3/uL (0.0-0.4); Eosinophils Percent Auto 1.3 % (0-4); Hematocrit 35.6 % (37.0-47.0); Hemoglobin 10.9 g/dl (12.0-16.0); Imm Gran Abs Auto 0.02 X10*3/uL (0.00-0.03); Imm Gran Pct Auto 0.3 % (0.0-0.4); Lymphocytes Absolute Auto 1.4 X10*3/uL (1.2-4.9); Lymphocytes Percent Auto 22.4 % (20-40); Mean Corpuscular HGB Conc 30.6 g/dl (31.0-35.0); Mean Corpuscular Hemoglobin 26.5 pg (27.0-33.0); Mean Corpuscular Volume 86.4 fL (80.0-98.0); Mean Platelet Volume 9.8 fL (9.4-12.3); Monocytes Absolute Auto 0.6 X10*3/uL (0.1-1.2); Monocytes Percent Auto 9.3 % (2-11); Neutrophils Absolute Auto 4.2 x10*3/uL (2.0-8.3); Neutrophils Percent Auto 66.2 % (45-73); Platelet Count 342 X10*3/uL (160-400); Red Blood Count 4.12 X10*6/uL (4.20-5.50); Red Cell Distribution Width 17.1 % (11.0-16.0); White Blood Count 6.3 X10*3/uL (4.8-10.8)
[2022-11-26 11:25] LABS: Estimated Average Glucose 85 mg/dL; Hemoglobin A1c % 4.6 %
[2022-11-26 11:54] LABS: Alanine Aminotransferase 51 U/L (0-31); Albumin Level 3.7 g/dL (3.5-5.0); Alkaline Phosphatase 176 U/L (39-117); Anion Gap 13 (12-20); Aspartate Amino Transferase 18 U/L (5-31); Bilirubin Direct 0.2 mg/dL (0.0-0.5); Bilirubin Total 0.5 mg/dL (0.0-1.0); Blood Urea Nitrogen 7 mg/dL (9-16); Calcium 9.2 mg/dL (8.4-10.2); Carbon Dioxide 22 mmol/L (22-29); Chloride 108 mmol/L (96-108); Estimated Glomerular Filt Rate > 60; Glucose Random 73 mg/dL (60-115); Potassium 4.3 mmol/L (3.3-5.1); Sodium 139 mmol/L (135-145); Total Protein 6.8 g/dL (6.5-8.0)
== END 2022-11-26 10:12 | disposition home or self-care (01) ==
LOC: HO.LAB 10:11
PROVIDERS: PCP Internal Medicine; Visit Provider Physician Assistant Surgical
DX: K80.50 Calculus of bile duct without cholangitis or cholecystitis without obstruction (principal)
CPT/HCPCS: 36415; 80053; 82248; 83036; 85025; 85611; 85732

== ENCOUNTER 2022-11-28 07:40 | Day surgery (SDC) | payer OTHER, SELFPAY ==
[2022-11-22 15:20] VITALS: BMI 39.4
--- NOTE | 2022-11-22 23:27 | MHC.SHP ---
Pre-Procedural Eval Section A Date of Service: 11/22/22 The patient is an INPATIENT: No The History & Physical has been completed within 30 days and I have reviewed it.: Yes Section B Chief Complaint: Calculus of gallbladder without cholecystitis Relevant Family History (Specify if Yes): No Relevant Social History: None Present Medications: None Medical History: No relevant PMH History of Previous Operations: Relevant previous surgery/procedure and date(s) (Lap sleeve gastrectomy) Allergies: Allergies Allergy/AdvReac Type Severity Reaction Status Date / Time prednisone Allergy Severe Hives Verified 08/28/22 08:38 Review of Systems Sugical H&P ROS: Negative: Constitution, Cardiovascular, Respiratory, Neurological, Psychiatric, Hem-Onc, Allergic/Immunologic, Genitourinary, Musculoskeletal, Integumentary, Endocrine and Eyes/Ears/Nose/Throat and Yes, Specify: Gastrointestinal (abdominal pain) Exam Surgical H&P Exam: Normal: HEENT, Normal: Heart, Normal: Lungs, Normal: Extremities, Normal: Skin and Normal: Neurological and Significant Findings: Abdomen (abdominal tenderness) Plan Diagnosis/Plan: Unchanged (Lap cholecystectomy for symptomatic cholelithiasis. Risks of bleeding, infection, common bile duct injury, bile leak, VTE were discussed with the patient.) I have reviewed the history and physical and performed a pertinent physical examination on my patient. No changes have occurred unless specified. Time Spent With Patient Time: Total time managing care of this patient today ____ minutes.
--- NOTE | 2022-11-27 10:44 | P.CONAN_ITS ---
Documented by User: Armida Swartz NP 11/27/22 10:47 HPI - Anesthesia Eval Consult details Narrative: 37yo F for Cholecystectomy Laparoscopic s/p gastric sleeve 10/2021 [facility] Active Problems Active Problems: All Active Problems (Updated 11/22/22 @ 15:19 by Jagruti Hurt RN) Rheumatoid arthritis (Acute) S/P laparoscopic sleeve gastrectomy (Acute) Congenital intra-abdominal adhesions (Acute) Biliary colic (Acute) Liver fibrosis (Acute) Anxiety (Acute) Depression (Acute) Hypothyroidism (Acute) Morbid obesity (Acute) Past Medical History Medical History DIVYA positive Anxiety BMI 50.0-59.9, adult Cough Depression Encounter for gastric sleeve procedure Hypothyroidism Joint pain Liver fibrosis Morbid obesity Physical exam Pre-op evaluation Rheumatoid arthritis Vitamin D deficiency Family History Family History Father No problems noted. Mother No problems noted. Sister No problems noted. Family history of problems with anesthesia: No Surgical History Surgical History History of hip replacement History of root canal procedure History of sleeve gastrectomy S/P tonsillectomy History of Problems with Anesthesia: No Social History Social History Housing: Apartment Are you a primary acute care certified nursing assistant to a significant other at home: No Do you presently have visiting nurse or other home services: No Alcohol intake: never Patient Tobacco Use Status: Former Tobacco user Quit Date: 2020 Tobacco use type: Cigarette Years Smoked: 10 e-Cigarette/Vaping Use: Never Used Second Hand Smoke Exposure: No Use of substances other than those prescribed or required for medical reasons: No Substance Use Type: Marijuana Have you been hit, kicked, punched, or otherwise hurt by someone within the past year? If so, by whom?: No Are you DNR?: No Advance Directives: No Advance Directives Information Provided: Yes (advised to bring copy of HCP form DOS for [facility] [place] chart) Advance Directives on File: No Recently lost weight without trying: No Nutrition Risks: No Nutritional Risk Patient : No FDLMP: 11/05/22 : No Poor oral hygiene: No service: No Current occupational status: unemployed Meds Allergies Allergy/AdvReac Type Severity Reaction Status Date / Time prednisone Allergy Severe Hives Verified 08/28/22 08:38 Home Medications Medication Instructions Recorded Confirmed Last Taken Type folic acid 1 mg tablet 1 mg PO DAILY 10/25/22 11/22/22 11/25/22 History methotrexate sodium 25 mg/mL 50 mg subcut QWEEK 11/22/22 11/22/22 11/12/22 History injection solution tramadol 50 mg tablet 1 - 2 tab PO QID PRN Pain 11/28/22 11/28/22 11/18/22 History Exam Exam Date and Time: November 27, 2022 1044 Height,Weight and Vital Signs: Height 5 ft 4 in Weight 104.326 kg Pertinent Lab Results Pertinent Lab Results: Laboratory Tests 11/26/22 10:22 Blood Type B Positive Antibody Screen NEGATIVE Laboratory Tests 11/26/22 11/26/22 10:24 10:24 WBC 6.3 Hgb 10.9 L Hct 35.6 L Plt Count 342 Sodium 139 Potassium 4.3 Chloride 108 Carbon Dioxide 22 BUN 7 L Creatinine 0.72 Narrative Narrative: EKG 10/2022 Vent. Rate : 086 BPM ? ? Atrial Rate : 086 BPM ?? P-R Int : 134 ms? QRS Dur : 086 ms ? ? QT Int : 380 ms ? ? ? P-R-T Axes : 055 037 014 degrees ?? QTc Int : 454 ms ? Normal sinus rhythm with sinus arrhythmia Normal ECG When compared with ECG of 07-DEC-2020 13:55, T wave inversion more evident in Inferior leads Assessment and Plan Assessment Anesthesia Assessment: Chart Reviewed Final Anesthetic Review Family History of Problems with Anesthesia: No History of Problems with Anesthesia: No Documented by User: Naina Hernandes MD 11/28/22 08:50 PMFSH Past Medical History Medical History DIVYA positive Anxiety BMI 50.0-59.9, adult Cough Depression Encounter for gastric sleeve procedure Hypothyroidism Joint pain Liver fibrosis Morbid obesity Physical exam Pre-op evaluation Rheumatoid arthritis Vitamin D deficiency Family History Family History Father No problems noted. Mother No problems noted. Sister No problems noted. Surgical History Surgical History History of hip replacement History of root canal procedure History of sleeve gastrectomy S/P tonsillectomy Social History Social History Housing: Apartment Are you a primary acute care certified nursing assistant to a significant other at home: No Do you presently have visiting nurse or other home services: No Alcohol intake: never Patient Tobacco Use Status: Former Tobacco user Quit Date: 2020 Tobacco use type: Cigarette Years Smoked: 10 e-Cigarette/Vaping Use: Never Used Second Hand Smoke Exposure: No Use of substances other than those prescribed or required for medical reasons: No Substance Use Type: Marijuana Have you been hit, kicked, punched, or otherwise hurt by someone within the past year? If so, by whom?: No Are you DNR?: No Advance Directives: No Advance Directives Information Provided: Yes (advised to bring copy of HCP form DOS for [facility] [place] chart) Advance Directives on File: No Recently lost weight without trying: No Nutrition Risks: No Nutritional Risk Patient : No FDLMP: 11/05/22 : No Poor oral hygiene: No service: No Current occupational status: unemployed Meds Allergies Allergy/AdvReac Type Severity Reaction Status Date / Time prednisone Allergy Severe Hives Verified 08/28/22 08:38 Home Medications Medication Instructions Recorded Confirmed Last Taken Type folic acid 1 mg tablet 1 mg PO DAILY 10/25/22 11/22/22 11/25/22 History methotrexate sodium 25 mg/mL 50 mg subcut QWEEK 11/22/22 11/22/22 11/12/22 History injection solution tramadol 50 mg tablet 1 - 2 tab PO QID PRN Pain 11/28/22 11/28/22 11/18/22 History Exam Airway Mallampati Class: II TM Dist: >3cm Neck ROM: Full (no limitations on range of motion due to RA) Loose/Missing/Broken Teeth: No Heart: RRR Lungs: CTA Assessment and Plan Assessment Anesthesia Assessment: Anesthesia Plan Discussed Final Anesthetic Review NPO: Yes ASA Class: III Final Preanesthetic Review: Meds/Allgs Chart Reviewed, Consent Obtained/Reviewed and Anes Risks/Benef Reviewed Patient Risk: Intermediate Procedure Risk: Intermediate Anesthetic Plan Anesthetic Plan: GA Disposition: Standard PACU
[2022-11-27 17:14] LABS: Alanine Aminotransferase 42 U/L (0-31); Alkaline Phosphatase 173 U/L (39-117); Aspartate Amino Transferase 16 U/L (5-31); Bilirubin Total 0.3 mg/dL (0.0-1.0)
[2022-11-27 17:21] LABS: COVID-19 Test Negative (Negative); IDNOW Serial# 16C4AD1C
[2022-11-28] VITALS (15 sets, daily range): BP systolic 114–145; BP diastolic 66–89; PULSE 58–91; RESP 10–18; TEMP 36.1–36.6; O2SAT 97–100
[2022-11-28] MEDS: Lactated Ringers 1,000 ML 100 ML IVCONT (08:06)
[2022-11-28 08:30] LABS: UPreg QC Valid YES; Urine Pregnancy NEGATIVE (NEGATIVE)
--- NOTE | 2022-11-28 08:53 | PM.OP ---
Brief Operative Note Date of Service: 11/28/22 Pre-op diagnosis: Symptomatic cholelithiasis Post-op diagnosis: same Procedure: PROCEDURE DATE: 11/28/2022 PREOPERATIVE DIAGNOSIS: Symptomatic cholelithiasis, mid epigastric and right upper quadrant abdominal pain POSTOPERATIVE DIAGNOSIS: Same as above. PROCEDURE: Laparoscopic cholecystectomy Surgeon: Chris Quintero M.D.. Ph.D. Community Service Officer Coordinator: Bonnie Boyd PA-C Anesthesia: General endotracheal anesthesia Estimated blood loss: Minimal FINDINGS AND PROCEDURE: OPERATIVE INDICATIONS: The patient is a 37 year old female known to me who underwent a laparoscopic sleeve gastrectomy on 10/11/2021. The patient had a 100lbs weight loss so far and had a completely uneventful recovery. The patient was doing very well but has recently been complaining of persistent mid epigastric and right upper quadrant abdominal pain which is mostly postprandial. Ultrasound of the abdomen and pelvis was consistent with cholelithiasis that was not present at the preoperative abdominal ultrasound. Based on this information I recommended laparoscopic cholecystectomy, possible upper endoscopy to evaluate the patient's symptoms. Risks and complications of the surgery were discussed with the patient in advance particularly the possibility of conversion to an open surgery, bleeding, infection, obstruction, deep vein thrombosis or pulmonary embolism, bile leak or major bile duct injury that may require surgical intervention. The patient understood the risks and was in agreement with the plan. PROCEDURE: After informed consent was obtained by the patient, the patient was transferred to the Operating Room and was placed in the supine position. The patient was given preoperative antibiotics and after successful induction of general anesthesia, pneumatic compression devices were placed. The patient was then prepped and draped in the usual sterile manner and abdominal access was established with the Kira technique. The abdomen was insufflated with C02 to a pressure of 15 mmHg. A 5 mm Versi-step port was placed, slightly to the right and superior from the umbilicus. The 5 mm camera was introduced. I inspected the area where the port had been placed and there was no injury. The patient was then placed initially in a steep reverse Trendelenburg position and three additional ports were placed, specifically a 12 mm Versi-step port just to the right of the midline below the xiphoid process and two 5 mm Versi-step ports at the right upper quadrant and right flank. At that point the patient was placed in a steep reverse Trendelenburg position tilted to the left side. The gallbladder was retracted cephalad and laterally. There were adhesions between the omentum and the gallbladder wall that were taken down. The peritoneal attachments of the gallbladder at the triangle of Calot posteriorly and anteriorly were taken down. The cystic duct and artery were both seen. They were completely dissected free, skeletonized all the way to the infundibulum of the gallbladder. In a similar fashion we also cleaned the liver bed just behind the cystic artery to make sure there was no additional structures in this area. Once we confirmed that both structures were entering into the gallbladder and there were no other structures in the area, they were both clipped with two clips proximally, one distally and were cut in-between. There was also another small vein near the liver bed which was also clipped with a clip proximally and distally and it was cut in between. We then using the electrocautery we slowly took down the gallbladder from the liver bed. Small areas of bleeding from the liver parenchyma were controlled with the cautery. After the gallbladder was completely detached from the liver bed, it was placed in an EndoCatch bag and was removed without difficulty from the xiphoid port. We then inspected the clips at the cystic duct and artery and were both in place. There was no active bleeding from the liver bed. At that point the patient was placed in supine position, we deflated the abdomen and we removed all ports under direct vision and no bleeding was noted from any of the port sites. The fascia of the 12 mm port was closed using a #1 Polysorb suture. Then 30cc of Ropivacaine and 10mg of Dexamaethasone were used to infiltrate the fascial closure as well as all skin incisions. A total of 7ml of Zynrelef was applied in he Kira wound. The wounds were irrigated with saline mixed with antibiotic solution and then the skin was closed with 4-0 Monocryl subcuticular sutures antibiotic-coated. Steri-strips and OpSites were used to cover all incisions. The patient extubated and was transferred in stable condition to the Recovery Room for further care. I was present and performed all steps of the procedure. Angelica Bonnie Boyd was the first officer and flight instructor. There were no residents to assist with this case. Chris Quintero M.D., Ph.D., F.A.C.S. Surgeon: Butch Quintero MD Anesthesia: GETA, local and other (TAP block and 7ml Zynrelef) Was an Community Service Officer Coordinator used for this Procedure?: No Community Service Officer Coordinator: Bonnie Boyd Estimated blood loss (mL): 10 IV fluids (mL): 2,700 Urine output (mL): 0 (No Christie to record output) Pathology: other (Gallbladder) Condition: stable Disposition: PACU
[2022-11-28] MEDS: ondansetron HCL 4 MG/2 ML VIAL IVPUSH (11:10)
[2022-11-28] MEDS: fentaNYL citrate/PF 100 MCG/2 ML VIAL 50 MCG IVPUSH ×2 (11:15→11:35)
[2022-11-28] MEDS: HYDROmorphone HCl 0.5 MG/0.5 ML SYRINGE 0.25 MG IVPUSH (12:15)
[2022-11-28] MEDS: traMADoL HCL 50 MG TABLET PO (14:15)
[2022-12-04 11:48] LABS: Incubated PTT-LA Mix CORRECTED; Mixing Study - PT 10.8 sec (9.0-11.5); PTT LA 46 sec (< OR = 40); PTT-LA Mix CORRECTED
== END 2022-11-28 14:50 | disposition home or self-care (01) ==
PROVIDERS: Nurse Practitioner; Physician Assistant Surgical; PCP Internal Medicine; Visit Provider Surgery
PROC: 0FT44ZZ Resection of Gallbladder, Percutaneous Endoscopic Approach (ICD-10-PCS; CPT 47562; principal; 2022-11-28 08:50)
DX: K80.10 Calculus of gallbladder with chronic cholecystitis without obstruction (principal); K82.8 Other specified diseases of gallbladder; Z98.84 Bariatric surgery status; E66.01 Morbid (severe) obesity due to excess calories; Z68.43 Body mass index [BMI] 50.0-59.9, adult; K74.00 Hepatic fibrosis, unspecified; E03.9 Hypothyroidism, unspecified; R76.8 Other specified abnormal immunological findings in serum; M06.9 Rheumatoid arthritis, unspecified; F32.A Depression, unspecified; F41.1 Generalized anxiety disorder; Z79.899 Other long term (current) drug therapy; Z88.8 Allergy status to other drugs, medicaments and biological substances; Z20.822 Contact with and (suspected) exposure to COVID-19; Z87.891 Personal history of nicotine dependence
CPT/HCPCS: 47562; 36415; 81025; 82247; 84075; 84450; 84460; 85611; 85732; 86850; 86900; 86901; 87635; 88304; C9088; J0131; J0690; J1100; J1170; J2250; J2370; J2405; J2550; J2795; J3010

== ENCOUNTER → 2022-12-09 15:37 | Outpatient (BNVA) | payer OTHER, SELFPAY | PROVIDERS: PCP Internal Medicine; Visit Provider Physician Assistant Surgical | DX: E66.01 Morbid (severe) obesity due to excess calories (principal); Z98.84 Bariatric surgery status; Z90.49 Acquired absence of other specified parts of digestive tract | CPT/HCPCS: 99212 ==

== ENCOUNTER 2024-01-01 14:10 | Outpatient (AMB) | payer BC, SELFPAY ==
[2024-01-01 14:12] VITALS: BP 120/78; PULSE 102; O2SAT 98; BMI 38.8
--- NOTE | 2024-01-01 14:12 | MHC.PC.OV ---
Vital Signs 01/01/24 14:12 Height 5 ft 4 in Weight 226 lb BMI 38.8 BP 120/78 Blood Pressure Location Lt brachial Position Sitting Pulse 102 H Pulse Source Pulse Oximeter Pulse Oximetry (%) 98 Oxygen Delivery Method Room Air Intake Visit Reasons: Possible Strep Throat Gaming Investigator Required: No Maintenance Service Supervisor: Not Required per policy Accompanied by: Self / Same As Patient Allergies prednisone Allergy (Severe, Verified 01/01/24 14:12) Hives Medication List - Last Reconciled 01/01/24 by Bruce Canchola MD cephalexin 250 mg PO Q6H fluconazole (Diflucan) 100 mg PO DAILY fluoxetine (Prozac) 20 mg PO DAILY folic acid 1 mg PO DAILY methotrexate sodium 50 mg subcut QWEEK Tobacco use date assessed: 01/01/24 Dental Screening Dental Screen Date: 01/01/24 Did you have a dental visit in the last 12 months?: Yes Did you have a dental problem in the last 6 months where you did not have access to dental care?: No Was dental information given to patient?: Patient has dentist HPI Possible Strep Throat HPI Details sore throat for 2 days; exposed to strep PFSH Medical History (Updated 04/25/23 @ 06:09 by Ja Collier MD) Encounter for gastric sleeve procedure Liver fibrosis Hypothyroidism Cough Pre-op evaluation DIVYA positive Vitamin D deficiency Joint pain Physical exam Rheumatoid arthritis Anxiety Depression BMI 50.0-59.9, adult Morbid obesity Surgical History Hx laparoscopic cholecystectomy History of hip replacement History of sleeve gastrectomy History of root canal procedure S/P tonsillectomy Family History Father No problems noted. Mother No problems noted. Sister No problems noted. Social History (Updated 04/24/23 @ 12:23 by AMRLENA Courtney) Housing: Apartment Are you a primary primary care md to a significant other at home: No Do you presently have visiting nurse or other home services: No Alcohol intake: current Alcohol intake frequency: holidays/special occasions only Comment: medicated with po tramadol Patient Tobacco Use Status: Former Tobacco user Quit Date: 2020 Tobacco use type: Cigarette Years Smoked: 10 e-Cigarette/Vaping Use: Never Used Second Hand Smoke Exposure: No Substance Use Type: Marijuana service: No Current occupational status: unemployed Cognitive needs: No Hearing needs: No Vision needs: No Questionnaire PHQ-9 Over the last 2 weeks, how often have you been bothered by any of the following problems? 1. Little interest or pleasure in doing things: not at all 2. Feeling down, depressed, or hopeless: not at all 3. Trouble falling or staying asleep, or sleeping too much: not at all 4. Feeling tired or having little energy: not at all 5. Poor appetite or overeating: not at all 6. Feeling bad about yourself - or that you are a failure or have let yourself or your family down: not at all 7. Trouble concentrating on things, such as reading the newspaper or watching television: not at all 8. Moving or speaking so slowly that other people could have noticed. Or the opposite - being so fidgety or restless that you have been moving around a lot more than usual: not at all 9. Thoughts that you would be better off or of hurting yourself in some way: not at all Total score: 0 Depression Screening Interpretation: Negative Depression Screening Done: Yes Source: Developed by Drs. Chadwick Hathaway, Sia Justice, Wilberto Lozano and colleagues, with an educational velvet from [employer]. Thrive Questionnaire Date Thrive assessed: 01/01/24 I am a: Patient What is your living situation today?: I have a steady place to live Within the past 12 months, did the food you bought not last and you didn't have the money to get more?: Never true Within the past 12 months, did you worry whether your food would run out before you got money to buy more?: Never true Do you have trouble paying for medicines?: No Do you have trouble getting transportation to medical appointments?: No Do you have trouble paying your heating and electricity bill?: No Do you have trouble taking care of your child, family member or friend?: No Do you have trouble with day-to-day activities such as bathing, preparing meals, shopping, managing finances, etc.?: No Are you currently unemployed and looking for a job?: No Are you interested in more education?: No Please select the resources that you would like help with: None THRIVE Score: 0 AUDIT C Alcohol Use Questionnaire (AUDIT-C) 1. How often do you have a drink containing alcohol?: Never Total Score: 0 RILEY-7 AMB Questionnaire RILEY-7 Date RILEY - 7 assessed: 01/01/24 Feeling nervous, anxious, or on edge: 1 = Several days Not being able to stop or control worryin = Not at all Worrying too much about different things: 1 = Several days Trouble relaxin = Not at all Being so restless that it is hard to sit still: 0 = Not at all Becoming easily annoyed or irritable: 0 = Not at all Feeling afraid as if something awful might happen: 0 = Not at all Total RILEY-7 score (0-4 normal; 5-9 mild; 10-14 moderate; 15-21 severe): 2 Source: Developed by Drs. Chadwick Hathaway, Sia Justice, Wilberto Lozano and colleagues, with an educational velvet from [employer]. Review of Systems Const Denies chills, Denies headache(s) and Denies weight loss ENT Denies headache(s) Card Denies chest pain, Denies syncope, Denies irregular heart rhythm and Denies dyspnea Resp Denies chest congestion, Denies cough and Denies dyspnea GI Denies abdominal pain, Denies change in stool character, Denies nausea and Denies vomiting Musc Denies deformity and Denies joint swelling Neuro Denies syncope and Denies headache(s) Physical exam (Primary Care) Vital Signs: Last Vital Signs Pulse 102 H 01/01/24 14:12 BP 120/78 01/01/24 14:12 Pulse Ox 98 01/01/24 14:12 Oxygen Delivery Method Room Air 01/01/24 14:12 BMI result Body Mass Index 38.8 Tobacco/Smoking Status: Tobacco use Status Tobacco use date assessed 01/01/24 01/01/24 14:13 Patient Tobacco Use Status Former Tobacco user 01/01/24 14:13 Tobacco use type Cigarette 01/01/24 14:13 e-Cigarette/Vaping Use Never Used 01/01/24 14:13 PHQ-9: PHQ-9 Score PHQ-9: Total score 0 01/01/24 14:20 Depression Screening Interpretation: Negative Thrive Assessment: Date of Thrive Assessment Date Thrive assessed 01/01/24 01/01/24 14:13 Const General: cooperative, comfortable, no acute distress and alert HENMT Other: throat clear Neck Neck: Yes no lymphadenopathy Thyroid: Thyroid normal Resp Effort & Inspection: normal respiratory effort Auscultation: clear to auscultation bilaterally Percussion: percussion normal Cardio Jugular venous distension: no JVD Palpation: normal PMI Rate: regular rate Rhythm: regular rhythm Heart sounds: S1 normal heart sound present and S2 normal heart sound present GI Inspection: Yes normal to inspection Palpation (GI): No hepatosplenomegaly present Skin General skin exam: no rashes or lesions noted Extrem General: Yes no clubbing, cyanosis or edema Assessment and Plan Assessment & Plan (1) Upper respiratory tract infection: Code(s): J06.9 - Acute upper respiratory infection, unspecified Plan: rx sent Orders: Orders Complete Blood Count Auto Diff Today D64.9 - Anemia, unspecified IRON PROFILE Today E61.1 - Iron deficiency Medications: New cephalexin 250 mg PO Q6H 20 caps 0RF Coding Level of Care Code Est Pt Level 3 (07509) Diagnoses Upper respiratory tract infection J06.9
== END 2024-01-01 15:10 | disposition home or self-care (01) ==
PROVIDERS: PCP Internal Medicine; Visit Provider Internal Medicine
DX: J06.9 Acute upper respiratory infection, unspecified (principal)
CPT/HCPCS: 99213

== ENCOUNTER 2024-04-26 21:03 | Emergency (ER) | payer BC, SELFPAY ==
[2024-04-26 21:08] VITALS: BP 126/81; BP 138/88; PULSE 121; PULSE 126; RESP 20; TEMP 37.1; O2SAT 97; BMI 42.9
[2024-04-26 21:21] LABS: Basophils Absolute Auto 0.1 X10*3/uL (0.0-0.2); Basophils Percent Auto 0.7 % (0-2); Eosinophils Absolute Auto 0.1 X10*3/uL (0.0-0.4); Eosinophils Percent Auto 1.9 % (0-4); Hematocrit 31.5 % (37.0-47.0); Hemoglobin 9.4 g/dl (12.0-16.0); Imm Gran Abs Auto 0.01 X10*3/uL (0.00-0.03); Imm Gran Pct Auto 0.1 % (0.0-0.4); Lymphocytes Absolute Auto 1.8 X10*3/uL (1.2-4.9); Lymphocytes Percent Auto 27.2 % (20-40); MANUAL DIFF FLAG NO; Mean Corpuscular HGB Conc 29.8 g/dl (31.0-35.0); Mean Corpuscular Hemoglobin 22.5 pg (27.0-33.0); Mean Corpuscular Volume 75.4 fL (80.0-98.0); Mean Platelet Volume 8.3 fL (9.4-12.3); Monocytes Absolute Auto 0.4 X10*3/uL (0.1-1.2); Monocytes Percent Auto 5.5 % (2-11); Neutrophils Absolute Auto 4.4 x10*3/uL (2.0-8.3); Neutrophils Percent Auto 64.6 % (45-73); Platelet Count 463 X10*3/uL (160-400); Red Blood Count 4.18 X10*6/uL (4.20-5.50); Red Cell Distribution Width 19.1 % (11.0-16.0); White Blood Count 6.8 X10*3/uL (4.8-10.8)
[2024-04-26 21:37] LABS: Alanine Aminotransferase 12 U/L (0-31); Albumin Level 3.8 g/dL (3.5-5.0); Alkaline Phosphatase 71 U/L (39-117); Anion Gap 13 (12-20); Aspartate Amino Transferase 17 U/L (5-31); Bilirubin Total 0.2 mg/dL (0.0-1.0); Blood Urea Nitrogen 8 mg/dL (9-16); Calcium 8.7 mg/dL (8.4-10.2); Carbon Dioxide 20 mmol/L (22-29); Chloride 107 mmol/L (96-108); Creatinine Clr Calc Pharmacy 143.2; Estimated Glomerular Filt Rate > 60; Ethanol 254 mg/dL; Glucose Random 98 mg/dL (60-115); Potassium 3.6 mmol/L (3.3-5.1); Sodium 136 mmol/L (135-145); Total Protein 7.9 g/dL (6.5-8.0)
--- NOTE | 2024-04-26 21:59 | PC.NURSE ---
pt ambulating around the room and hallway with a steady gait, requesting to go home, has a sober ride. pt crying on/off
[2024-04-26 22:04] VITALS: BP 124/77; PULSE 94; RESP 18; TEMP 36.8; O2SAT 99
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
[2024-04-26 23:03] VITALS: BP 124/77; PULSE 94; RESP 18; TEMP 36.8; O2SAT 99
== END 2024-04-26 23:04 | disposition home or self-care (01) ==
PROVIDERS: Emergency Provider Student in an Organized Health Care Education/Training Program
DX: F10.20 Alcohol dependence, uncomplicated (principal); Y90.8 Blood alcohol level of 240 mg/100 ml or more; Z79.899 Other long term (current) drug therapy; Z51.81 Encounter for therapeutic drug level monitoring
CPT/HCPCS: 36415; 80053; 80307; 85025; 99283; 99284

== ENCOUNTER 2024-04-30 10:59 | Outpatient (AMB) | payer BC, SELFPAY ==
--- NOTE | 2024-04-30 11:00 | A.OFFPC_ITS ---
Vital Signs 04/30/24 11:01 Height 5 ft 4 in Weight 234 lb BMI 40.2 BP 120/78 Blood Pressure Location Lt brachial Position Sitting Pulse 81 Pulse Source Pulse Oximeter Pulse Oximetry (%) 98 Oxygen Delivery Method Room Air Intake Visit Reasons: Possible UTI Allergies prednisone Allergy (Severe, Verified 04/26/24 21:11) Hives Medication List - Last Reconciled 05/03/24 by Bruce Canchola MD ferrous sulfate 325 mg PO BID fluoxetine (Prozac) 20 mg PO DAILY folic acid 1 mg PO DAILY methotrexate sodium 50 mg subcut QWEEK Tobacco use date assessed: 01/01/24 Dental Screening Dental Screen Date: 01/01/24 HPI Possible UTI HPI Details has fe def and due for labs PFSH Medical History Encounter for gastric sleeve procedure Liver fibrosis Hypothyroidism Cough Pre-op evaluation DIVYA positive Vitamin D deficiency Joint pain Physical exam Rheumatoid arthritis Anxiety Depression BMI 50.0-59.9, adult Morbid obesity Surgical History Hx laparoscopic cholecystectomy History of hip replacement History of sleeve gastrectomy History of root canal procedure S/P tonsillectomy Family History Father No problems noted. Mother No problems noted. Sister No problems noted. Social History Housing: Apartment Are you a primary residential care facility manager to a significant other at home: No Do you presently have visiting nurse or other home services: No Alcohol intake: current Alcohol intake frequency: holidays/special occasions only Comment: medicated with po tramadol Patient Tobacco Use Status: Former Tobacco user Tobacco use type: Cigarette Years Smoked: 10 e-Cigarette/Vaping Use: Never Used Second Hand Smoke Exposure: No Substance Use Type: Marijuana service: No Current occupational status: unemployed Cognitive needs: No Hearing needs: No Vision needs: No Questionnaire Thrive Questionnaire Date Thrive assessed: 01/01/24 I am a: Patient What is your living situation today?: I have a steady place to live Within the past 12 months, did the food you bought not last and you didn't have the money to get more?: Never true Within the past 12 months, did you worry whether your food would run out before you got money to buy more?: Never true Do you have trouble paying for medicines?: No Do you have trouble getting transportation to medical appointments?: No Do you have trouble paying your heating and electricity bill?: No Do you have trouble taking care of your child, family member or friend?: No Do you have trouble with day-to-day activities such as bathing, preparing meals, shopping, managing finances, etc.?: No Are you currently unemployed and looking for a job?: No Are you interested in more education?: No Please select the resources that you would like help with: None THRIVE Score: 0 AUDIT C Alcohol Use Questionnaire (AUDIT-C) 1. How often do you have a drink containing alcohol?: Never Total Score: 0 RILEY-7 AMB Questionnaire RILEY-7 Date RILEY - 7 assessed: 01/01/24 Source: Developed by Drs. Chadwick Hathaway, Sia Justice, Wilberto Lozano and colleagues, with an educational velvet from [employer] Review of Systems Const Denies chills, Denies headache(s) and Denies weight loss ENT Denies headache(s) Card Denies chest pain, Denies syncope, Denies irregular heart rhythm and Denies dyspnea Resp Denies chest congestion, Denies cough and Denies dyspnea GI Denies abdominal pain, Denies change in stool character, Denies nausea and Denies vomiting Musc Denies deformity and Denies joint swelling Neuro Denies syncope and Denies headache(s) Physical exam (Primary Care) Vital Signs: Last Vital Signs Pulse 81 04/30/24 11:01 BP 120/78 04/30/24 11:01 Pulse Ox 98 04/30/24 11:01 Oxygen Delivery Method Room Air 04/30/24 11:01 BMI result Body Mass Index 40.2 Tobacco/Smoking Status: Tobacco use Status Tobacco use date assessed 01/01/24 04/30/24 11:01 Patient Tobacco Use Status Former Tobacco user 04/30/24 11:01 Tobacco use type Cigarette 04/30/24 11:01 e-Cigarette/Vaping Use Never Used 04/30/24 11:01 Thrive Assessment: Date of Thrive Assessment Date Thrive assessed 01/01/24 04/30/24 11:01 Const General: cooperative, comfortable, no acute distress and alert Neck Neck: Yes no lymphadenopathy Thyroid: Thyroid normal Resp Effort & Inspection: normal respiratory effort Auscultation: clear to auscultation bilaterally Percussion: percussion normal Cardio Jugular venous distension: no JVD Palpation: normal PMI Rate: regular rate Rhythm: regular rhythm Heart sounds: S1 normal heart sound present and S2 normal heart sound present GI Inspection: Yes normal to inspection Palpation (GI): No hepatosplenomegaly present Skin General skin exam: no rashes or lesions noted Extrem General: Yes no clubbing, cyanosis or edema Assessment and Plan Assessment & Plan (1) Iron deficiency: Code(s): E61.1 - Iron deficiency Plan: check labs Medications: New ferrous sulfate 325 mg PO BID 120 tabs 0RF Coding Level of Care Code Est Pt Level 3 (59887) Diagnoses Iron deficiency E61.1
[2024-04-30 11:01] VITALS: BP 120/78; PULSE 81; O2SAT 98; BMI 40.2
== END 2024-04-30 13:07 | disposition home or self-care (01) ==
PROVIDERS: PCP Internal Medicine; Visit Provider Internal Medicine
DX: E61.1 Iron deficiency (principal)
CPT/HCPCS: 99213

== ENCOUNTER 2025-04-27 11:32 | Outpatient (AMB) | payer BC, SELFPAY ==
--- NOTE | 2025-04-27 11:36 | MHC.OFFVISWM ---
VS Expanded 04/27/25 11:57 BP 136/82 Blood Pressure Location Rt brachial Blood Pressure Position Sitting Pulse 88 Pulse Source Pulse Oximeter Temp 96.3 F L Temperature Source Temporal Artery Scan Pulse Oximetry 100 Oxygen Delivery Method Room Air Height 5 ft 4 in Weight 223 lb 9.6 oz BMI 38.4 Body Fat % 43.3 Body Fat Mass 96.8 Fat Free Mass 126.8 Visceral Fat Rating 11.0 Body Water % 40.6 Body Water Mass 90.8 Muscle Mass/Score 120.4 Basal Metabolic Rate/Score 1,783 Intake Visit Reasons: (OV) PO LSG 10/09/21 Allergies prednisone Allergy (Severe, Verified 04/27/25 11:42) Hives Medication List - Last Reconciled 04/27/25 by SONYA Peña atomoxetine (Strattera) 40 mg PO DAILY clotrimazole 1% 1 appl topical BID ferrous sulfate 325 mg PO BID folic acid 1 mg PO DAILY gabapentin ER 900 mg PO QPM methotrexate sodium 50 mg subcut QWEEK tirzepatide (weight loss) (Zepbound) 2.5 mg (0.5 mL) subcut QWEEK HPI Comments Details: This?is a?39?yo F who is s/p LSG 10/09/2021. Last recorded weight in our office was 236 lbs in Oct 2022. Reports she has stayed about the same weight for about over a year now. She also underwent lap babatunde in 2022. Also notices some loose skin of abdomen, occasionally uses Aquaphor for . No complaints of nausea, emesis, abdominal pain or reflux, or constipation. Present meal plan includes: none Exercise routine includes: walking 3-4x/week, half a mile to a mile each time Have you been diagnosed with reflux (GERD)? no Score 0-5: 0=no symptoms, 1=noticeable but not bothersome (slight or occasional), 2=noticeable, bothersome but not daily, 3=bothersome and daily, 4=affects daily activities, 5=incapacitating, unable to do daily activities How bad is the heartburn: 0 Heartburn when lying down: 0 Heartburn when standing up: 0 Heartburn after meals: 0 Does heartburn change your diet: 0 Does heartburn wake you up from sleep: 0 Do you have difficulty swallowin Do you have pain with swallowin If you take medication for reflux, does this affect your daily life: 0 Total score: 0 PFSH Medical History Encounter for gastric sleeve procedure Liver fibrosis Hypothyroidism Cough Pre-op evaluation DIVYA positive Vitamin D deficiency Joint pain Physical exam Rheumatoid arthritis Anxiety Depression BMI 50.0-59.9, adult Morbid obesity Surgical History Hx laparoscopic cholecystectomy History of hip replacement History of sleeve gastrectomy History of root canal procedure S/P tonsillectomy Family History Father No problems noted. Mother No problems noted. Sister No problems noted. Social History (Updated 04/27/25 @ 11:43 by Teresa Jones CMA) Housing: Apartment Are you a primary property caretaker to a significant other at home: No Do you presently have visiting nurse or other home services: No Alcohol intake: current Alcohol intake frequency: holidays/special occasions only Comment: medicated with po tramadol Patient Tobacco Use Status: Current someday Tobacco user Tobacco use type: Cigarette Years Smoked: 10 e-Cigarette/Vaping Use: Never Used Second Hand Smoke Exposure: No Substance Use Type: Marijuana service: No Current occupational status: unemployed Cognitive needs: No Hearing needs: No Vision needs: No Assessment & Plan Assessment & Plan (1) Morbid obesity: Code(s): E66.01 - Morbid (severe) obesity due to excess calories Category: Medical (2) S/P laparoscopic sleeve gastrectomy: Code(s): Z98.84 - Bariatric surgery status Category: Medical Plan Discussed the importance of an appropriate meal plan. Gave pt [employer] alice download info. Encouraged her to increase exercise to 2000 josé miguel/week burned. Pt is interested in starting GLP1. Reviewed contraindications, discussed dosing. Discussed need for adequate protein intake while on GLP1s as well as frequent communication with our office. Pt will check in with me weekly and is aware that subsequent Rx will be dependent on frequent communication. Consider Contrave if GLP1 not covered by insurance; pt can discuss with her PCP. Labs ordered. Clotrimazole ointment ordered for rashes of excess skin. RTC 3mo. Orders: Orders Complete Blood Count Auto Diff Today Z98.84 - Bariatric surgery status C Reactive Protein Today Z98.84 - Bariatric surgery status Vitamin D 25-OH Total Today Z98.84 - Bariatric surgery status IRON PROFILE Today Z98.84 - Bariatric surgery status Insulin Today Z98.84 - Bariatric surgery status Comprehensive Met. Panel Today Z.84 - Bariatric surgery status Lipid Panel Today Z98.84 - Bariatric surgery status TSH reflex Free T4 Today Z98.84 - Bariatric surgery status Vitamin B12 and Folate Today Z98. - Bariatric surgery status Vitamin B1 Today Z98.84 - Bariatric surgery status Ferritin Today Z98.84 - Bariatric surgery status Vitamin A Today Z98.84 - Bariatric surgery status Zinc Today Z98.84 - Bariatric surgery status Medications: New tirzepatide (weight loss) (Zepbound) for 4 weeks 2.5 mg (0.5 mL) subcut QWEEK 2 mL 0RF clotrimazole 1% 1 appl topical BID 45 grams 3RF
[2025-04-27 11:57] VITALS: BP 136/82; PULSE 88; TEMP 35.7; O2SAT 100; BMI 38.4
--- OUTSIDE RECORDS SUMMARY | 2025-04-27 13:32 | XMS_ITS | Clinical Summary ---
Author Organization [facility] Address [address] [place] [address] Care Team Providers Care Delivery Truck Driver Name Role Phone Chanda Lindquist Primary Care Provider Unavaila ble Allergies Active Allergy Reactions Criticality Noted Date Comments Prednisone 01/13/2019 Reactions: Rash Medications Topiramate (TOPAMAX) 100 MG tablet TAKE 1 TABLET AT BEDTIME. 0 12/22/2018 Active Benzonatate (TESSALON) 200 MG capsule TAKE 1 CAPSULE 2-3 TIMES DAILY. 20 0 01/13/2019 Active FLUTICASONE PROPIONATE, NASAL, (FT Allergy Relief 24 HR) 50 MCG/ACT nasal spray USE 2 SPRAYS IN EACH NOSTRIL ONCE A DAY 1 0 01/13/2019 Active Active Problems Problem Noted Date Diagnosed Date Mood disorder 01/13/2019 Viral URI with cough 01/13/2019 Immunizations Immunization Administration Dates Next Due Influenza,injectable,quad,Prsrv Fr 07/14/2018 Social History Tobacco Use Types Packs/Day Years Used Date Smoking Tobacco: Never Assessed Comments:Smoking Status:Curr ently using tobacco Comments Unknown Sex and Gender Information Value Date Recorded Sex Assigned at Not on file Legal Sex Female 1:44 PM EDT Gender Identity Not on file Sexual Orientation Not on file Last Filed Vital Signs Vital Sign Reading Time Taken Comments Blood Pressure 118/86 01/13/2019 4:52 PM EST Pulse 105 01/13/2019 4:52 PM EST Temperature 36.4 C (97.6 F) 01/13/2019 4:52 PM EST Respiratory Rate - - Oxygen Saturation 97% 01/13/2019 4:52 PM EST Inhaled Oxygen Concentration - - Weight 123 kg (271 lb 6.2 oz) 01/13/2019 4:52 PM EST Height 163.8 cm (5' 4.5 ) 01/13/2019 4:52 PM EST Body Mass Index 45.86 01/13/2019 4:52 PM EST Plan of Treatment Health Maintenance Due Date Last Done Comments Hepatitis C Screening 1987 Pap Smear 2003 DTaP/Tdap/Td (1 - Tdap) 2005 Hep B (1 of 3 - 19+ 3-dose series) 2006 COVID-19 Vaccine (1 - 2023-2 5 season) 2024 Influenza (Season Ended) 2025 07/14/2018 Zoster (Shingrix) (1 of 2) 2037 HPV Vaccine Aged Out No longer eligi ble based on patient's age to complete this topic Hep A Aged Out No longer eligi ble based on patient's age to complete this topic Hib Aged Out No longer eligi ble based on patient's age to complete this topic Meningococcal ACWY Aged Out No longer eligible based on patient's age to complete this topic Pneumococcal Aged Out No longer eligi ble based on patient's age to complete this topic Care Teams Delivery Truck Driver Relationship Specialty Start Date End Date Chanda Lindquist PCP - General 06/16/23
== END 2025-04-27 12:17 | disposition home or self-care (01) ==
LOC: HO.HBS 11:33
PROVIDERS: Visit Provider Physician Assistant Surgical
DX: E66.01 Morbid (severe) obesity due to excess calories (principal); Z68.38 Body mass index [BMI] 38.0-38.9, adult; Z90.3 Acquired absence of stomach [part of]; Z98.84 Bariatric surgery status
CPT/HCPCS: 99214